=== PATIENT | male | born 1970 | race Caucasian/White ===

== ENCOUNTER 2021-10-03 02:17 | Outpatient (CLI) | payer OTHER, SELFPAY ==
[2021-10-03 15:06] LABS: Source Nasal/Nares
[2021-10-04 01:23] LABS: COVID-19 PCR Negative (Negative)
== END 2021-10-03 02:18 | disposition home or self-care (01) ==
PROVIDERS: PCP Family Medicine; Visit Provider Podiatrist
DX: Z20.822 Contact with and (suspected) exposure to COVID-19 (principal); Z01.818 Encounter for other preprocedural examination
CPT/HCPCS: 87635

== ENCOUNTER 2021-10-05 08:11 | Day surgery (SDC) | payer OTHER, SELFPAY ==
--- NOTE | 2021-10-04 18:11 | HPE_ITS ---
Date of service: 10/05/21 History of Present Illness History of Present Illness Chief Complaint: right bunion and 2nd digit hammertoe deformity Narrative: 51 YO male with progressive pain associated with a bunion and hammertoe deformity of the right foot. Pain is interfering with shoe gear use and daily activity. PFSH All Active Problems Elevated blood pressure reading (Acute) GERD (gastroesophageal reflux disease) (Chronic) Foot deformity (Acute) Very large bilateral bunions with associated hammertoes adjacent, seen by podiatry Surgical History HEART SURGERY AGE 3; ? ASD ?VSD-pt. states he is unsure ofwhich defect it was Family History Mother Essential hypertension Father Myocardial infarction Brother Heart disease Myocardial infarction Maternal Cousin Factor 5 Leiden mutation, heterozygous Maternal Aunt Factor 5 Leiden mutation, heterozygous Grandmother Diabetes Heart disease Family history Heart disease STRONG HX OF HEART DISEASE Social History Smoking/Tobacco Use Status: Former Tobacco Use tobacco type: cigarettes Quit Date: 05/19/98 Tobacco: How many years used: 10 Second Hand Exposure: Yes Smoking risk assessment performed?: Yes Alcohol Intake: current Alcohol Intake frequency: a few times a week Alcohol type: beer Drug use: Never Substance use type: does not use Household members: spouse Housing: house Communication Needs: None Do you need help understanding health information?: Rarely Pets and animals: No Sexually active: Yes Do you think of yourself as: straight/heterosexual Current gender identity: male What is your relationship status?: How often do you talk on the phone with friends or family?: three or more times per week How often do you get together with friends or relatives?: twice per week How often do you attend denominational or yarsanism services?: decline to answer Do you belong to any clubs or organized social groups?: yes Panel score (0-1 are the most socially isolated patients): 3 Special yvette needs: No Seatbelt use: always Drive 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 History of cardiac repair at age 3 noted Lung reynoso are clear abdomen is soft, BS x 4, non tender Peripheral pulses are 2/4, no edema, CFT < 3 sec all toes Muscle groups are 5/5 Skeletal exam is remarkable for a moderate to severe HAV deformity and dorsally subluxed 2nd hammertoe deformity. Neurologically, grosssly intact Plan: surgical repair of the bunion and 2nd hammertoe deformity, right foot. Potential risks and alternative treatments were discussed. All questions were answered in detail. Informed consent was obtained.
--- NOTE | 2021-10-05 | BUN_PTH ---
PATIENT: Robert Gardner LOC: [facility] U#:[id number] AGE/SX: 51/M ROOM: RE10/05/[address]: Adelso Van : 1970 BED: DIS: 10/05/2021 SPEC #: [id number] RECD: 10/05/21 14:10 STATUS: ZEV RE #: [id number] KENNY: 10/05/21 00:[address]: Adelso Van DEPT: Surgical Specimen RECD BY: Nella Muse ENTERED: 10/05/21 14:13 SP TYPE: Bunion OTHR DR: Kin Olvera Tissues: 1 - BUNION Procedures: GROSS AND MICRO LEVEL 3 Comments: [id number] (SUBMITTED IN 100% ETHANOL)
[2021-10-05 08:29] VITALS: BP 171/101; PULSE 67; RESP 16; TEMP 36.3; O2SAT 100
[2021-10-05] MEDS: Lactated Ringers 1,000 ML 80 ML IV (08:50)
--- NOTE | 2021-10-05 08:56 | W.ANESPRE ---
General Info Date of Service Date Performed: 10/05/21 Height: 5 ft 10 in Weight: 100.1 kg Body Mass Index (BMI): 31.6 Surgical Procedure: Operation Date: 10/05/21 10:55 Proposed Procedure Side Surgeon p Opening Base Wedge Osteotomy,Arthrodesis 2nd Toe Right Adelso S Carlota, DPM s Arthrodesis Right Adelso S JAVON VanM Meds Allergies and Home Medications Allergies Allergy/AdvReac Type Severity Reaction Status Date / Time No Known Allergies Allergy Verified 10/05/21 08:27 Home Medication Medication Instructions Recorded omeprazole 20 mg capsule,delayed 20 mg PO DAILY #90 caps 06/20/21 release ibuprofen 200 mg tablet 600 mg PO Q6H PRN 10/05/21 Current Visit Medications: Current Medications Generic Name Dose Route Start Last Admin Trade Name Freq PRN Reason Stop Dose Admin Sodium Chloride 500 mls @ 0 mls/hr 10/05/21 06:00 Saline 500ml Bag IV PRN PRN As Directed Cefazolin Sodium/Dextrose 2 gm in 50 mls @ 100 mls/hr 10/05/21 06:00 Ancef Duplex IVPB 10/05/21 18:00 PREOP ADEEL Ringer's Solution 1,000 mls @ 80 mls/hr 10/05/21 06:00 10/05/21 08:50 IV 11/03/21 23:59 80 mls/hr INFUSION ADEEL Administration IV Miscellaneous Supplies 1 each 10/05/21 06:00 Iv Access IV DIRECTED ADEEL IV Miscellaneous Supplies 1 each 10/05/21 06:00 Iv Access IV 11/03/21 23:59 DIRECTED ADEEL Povidone Iodine 0 ml 10/05/21 06:00 Povidone-Iodine Soln. 118 Ml Btl TP DIRECTED ADEEL Sodium Chloride 0 ml 10/05/21 06:00 Normal Saline Flush 10 Ml Syr IVP PRN PRN Sodium Chloride 0 ml 10/05/21 06:00 Normal Saline Flush 10 Ml Syr IV 11/03/21 23:59 PRN PRN Sodium Chloride 0 ml 10/05/21 06:00 Normal Saline 10 Ml Vial IJ 11/03/21 23:59 DIRECTED PRN Sterile Water 0 ml 10/05/21 06:00 Water,Injection,Sterile 10 Ml Vial IJ 11/03/21 23:59 DIRECTED PRN PFSH Active Problems Active Problems: Problem Status Onset Code Elevated blood pressure reading R03.0 GERD (gastroesophageal reflux disease) K21.9 Foot deformity M21.969 Surgical History Surgical History HEART SURGERY AGE 3; ? ASD ?VSD-pt. states he is unsure ofwhich defect it was Tobacco Smoking/Tobacco Use Status: Former Tobacco Use Second hand exposure: Yes Alcohol Alcohol Intake: current Alcohol intake frequency: a few times a week Alcohol type: beer Substance Use Substance use: Never Substance use type: does not use Vital Signs and Lab Results Vital Signs Most Recent Vital Signs in EMR: Most Recent Vital Signs Temp Pulse Resp BP Pulse Ox 36.3 C L 67 16 171/101 H 100 10/05/21 08:29 10/05/21 08:29 10/05/21 08:29 10/05/21 08:29 10/05/21 08:29 Lab Results Blood Type / Crossmatch: No Data to Display Complete Blood Count: No Data to Display Complete Metabolic Panel: No Data to Display Liver Function Panel: No Data to Display Coagulation Panel: No Data to Display Cardiac Panel: No Data to Display Arterial Blood Gas: No Data to Display Venous Blood Gas: No Data to Display Pancreas Panel: No Data to Display Thyroid Panel: No Data to Display Infectious Disease: Coronavirus (COVID-19)(PCR) Negative (Negative) 10/03/21 06:55 Coronavirus 2019 Source Nasal/Nares 10/03/21 06:55 Blood Cultures: No Data to Display Toxicology Panel: No Data to Display Anesthesia Assessment and Plan Anesthesia History Personal History: No History of Anesthesia Complications Family History: No Family History of Anesthesia Complications Exercise Tolerance Exercise Tolerance: Metabolic Equivalents>4 Pertinent Negatives Pertinent Negatives: No Symptoms of GERD (Well controlled with medication ), No Major Cardiovascular Symptoms or Complaints (Open herart surgery at 3yo, ASD/VSD) and No Major Pulmonary Symptoms or Complaints Cardiac & Pulmonary Exam Cardiac Exam: Normal S1/S2 Heart Sounds Pulmonary Exam: Clear Bilateral Breath Sounds Implantable Cardiac Device Does patient have a Pacemaker or an ICD?: No Airway Exam Known Difficult Airway: No Mallampati Class: 1 Mouth Opening: Normal (> 3cm) Thyromental Distance: Greater than 3 cm Facial Hair: Full Monique Neck Range of Motion: Full ROM Neck Circumference: Thick Teeth Condition: Normal Dentition ASA Classification ASA Score: ASA 2 Emergency Case?: No NPO Status NPO Status: NPO Clears >2 hours, Solids >8 hours Anesthesia Plan Resuscitation Status: Full Code Anesthesia Technique: General Anesthesia Airway Planned: Natural Airway Monitors Used: Standard Monitors
[2021-10-05 09:03] VITALS: BMI 31.6
[2021-10-05] MEDS: Povidone-Iodine Soln. 118 ML BTL TP (09:29)
[2021-10-05] MEDS: ceFAZolin 2 GM/50 ML BAG IVPB (10:46)
--- NOTE | 2021-10-05 13:15 | DI.RAD_ITS ---
Exam(s) XR FOOT RT LIMITED EXAM: XR FOOT RT LIMITED CLINICAL HISTORY: RIGHT BUNION TECHNIQUE: 2D and realtime digital imaging was performed. CONTRAST MATERIAL: Refer to procedure report. COMPARISON: No exams were available for comparison FINDINGS: Fluoroscopy was provided for Dr. Van during the performance of a bunionectomy. Please refer to e procedure report for complete details. Ka,r= mGy IMPRESSION: RADIATION DOSE DELIVERED: Ka,r=0.05 mGy
[2021-10-05] MEDS: Lidocaine 1% Pres-Free 30 ML VIAL (13:20)
[2021-10-05] MEDS: Bupivacaine 0.5% Pres-Free 30 ML VIAL (13:20)
[2021-10-05] MEDS: Dexamethasone 4 MG/ML VIAL (13:21)
--- NOTE | 2021-10-05 14:05 | W.PM.DS.N ---
Date of service: 10/05/21 Time of Service: 13:06 DS: Diagnosis Discharge Diagnosis (1) Hallux valgus (acquired), right foot: Status: Acute (2) Hammertoe of right foot: Status: Acute Discharge Plan Disposition Patient Disposition: HOME Condition: Good Discharge Details Attending Provider: Adelso Van Primary Care Provider: Kin Olvera Home Meds and New Rx's Prescriptions: No Action omeprazole 20 mg capsule,delayed release(DR/EC) 20 mg PO DAILY Qty: 90 3RF ibuprofen 200 mg Tablet 600 mg PO Q6H PRN Discharge Instructions Equipment/Supplies: Non-Weight Bearing Crutches Activity:: Elevate Remove Dressings/Wound Care:: Do Not Remove Shower/Bathe:: Cover Diet:: Normal Diet Discharge Orders Discharge Orders: Discharge Order (Routine); Ordered 10/05/21 Ordered By: Adelso Van DS: Summary Time Spent with Patient providing and/or coordinating discharge services: Less than 30 minutes Status at Discharge Functional status at discharge: independent ambulation Overall status at discharge: patient is back to baseline Mental Status: mental status grossly normal Speech and Movement: speech and movement normal Mood: congruent mood Affect: normal affect Exam Psych Mental Status: mental status grossly normal Speech and Movement: speech and movement normal Mood: congruent mood Affect: normal affect DS: Data Vitals/I&O Vitals and I&O: Vital Signs Temperature 36.3 C L 10/05/21 08:29 Pulse 67 10/05/21 08:29 Pulse Rhythm Regular 10/05/21 08:29 Respiratory Rate 16 10/05/21 08:29 Respiratory Depth Normal 10/05/21 08:29 Blood Pressure 171/101 H 10/05/21 08:29 Pulse Oximetry 100 10/05/21 08:29 Oxygen Delivery Method Room Air 10/05/21 08:29 Oxygen Flow Rate 0 10/05/21 08:29 Pain Level 0 10/05/21 08:29 Intake & Output 10/04/21 10/05/21 10/05/21 18:59 06:59 18:59 Intake Total 750 / 750 Balance 750 / 750 Weight 100.1 kg Intake: IV 750 / 750 PFSH All Active Problems Hammertoe of right foot (Acute) Hallux valgus (acquired), right foot (Acute) Elevated blood pressure reading (Acute) GERD (gastroesophageal reflux disease) (Chronic) Foot deformity (Acute) Very large bilateral bunions with associated hammertoes adjacent, seen by podiatry Surgical History HEART SURGERY AGE 3; ? ASD ?VSD-pt. states he is unsure ofwhich defect it was Family History Mother Essential hypertension Father Myocardial infarction Brother Heart disease Myocardial infarction Maternal Cousin Factor 5 Leiden mutation, heterozygous Maternal Aunt Factor 5 Leiden mutation, heterozygous Grandmother Diabetes Heart disease Family history Heart disease STRONG HX OF HEART DISEASE Social History Smoking/Tobacco Use Status: Former Tobacco Use tobacco type: cigarettes Quit Date: 05/19/98 Tobacco: How many years used: 10 Second Hand Exposure: Yes Smoking risk assessment performed?: Yes Alcohol Intake: current Alcohol Intake frequency: a few times a week Alcohol type: beer Drug use: Never Substance use type: does not use Household members: spouse Housing: house Communication Needs: None Do you need help understanding health information?: Rarely Pets and animals: No Sexually active: Yes Do you think of yourself as: straight/heterosexual Current gender identity: male What is your relationship status?: How often do you talk on the phone with friends or family?: three or more times per week How often do you get together with friends or relatives?: twice per week How often do you attend buddhism or pentecostal services?: decline to answer Do you belong to any clubs or organized social groups?: yes Panel score (0-1 are the most socially isolated patients): 3 Special yvette needs: No Seatbelt use: always Drive 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
[2021-10-05 14:06] VITALS: BP 122/88; PULSE 52; RESP 16; TEMP 36; O2SAT 98
--- NOTE | 2021-10-05 14:09 | ROE_ITS ---
Date of service: 10/05/21 Time of Service: 13:09 Operative Note Operative Note DATE OF PROCEDURE: 10/05/21 PRE-OP DIAGNOSIS: Hallux valgus right foot, right second hammertoe PROCEDURE: Double osteotomy bunionectomy right foot consisting of opening wedge base osteotomy and Cole type distal osteotomy Arthrodesis right second toe at the MPJ and release at the metatarsal phalangeal joint with external K wire fixation SURGEON: Adelso Van Refer to Anesthesia Record ESTIMATED BLOOD LOSS: 15 PATHOLOGY: other TOURNIQUET TIME: 142 COMPLICATIONS: None Patient was transported to: same day Patient's condition: stable Implants: Tangible Cryptography opening base wedges with locking screws 2.8 mm x 4, jaeyos 2.7 millimeter screw in the neck of the first metatarsal, 0.062 K wire through the second toe Indications: 51-year-old male with chronic discomfort associated with a right bunion second hammertoe deformity interfering with shoe gear, comfortable ambulation and daily activities. Nonoperative treatments have failed to provide sufficient relief of symptoms. He is being brought to the OR for surgical repair of said pathology. He understands risk and complications of surgery pertaining to pain, scarring, infection, malunion, delayed union, nonunion, nerve injury, overcorrection, under correction, recurrence of deformities requiring revisional procedures. No promises have been made to the final outcome of surgery. Informed consent has been obtained. Procedure Description: Robert was brought to the operative suite placed in the supine position with the right foot prepped and draped in the usual sterile podiatric fashion. Timeout was performed for safe surgery standard fashion. Attention was directed to the right foot which was exsanguinated well-padded ankle tourniquet inflated 250 mmHg. Attention was directed to the great toe first ray where a 6 cm incision was made starting at the base of the first metatarsal and extending to the base of the proximal phalanx the incision was deepened in controlled depth fashion hemostasis being acquired with electrocautery dissection was carried down over the first MPJ and an inverted L capsulotomy performed a lateral dissection was performed consisting of a lateral capsulotomy and adductor tendon release and a fibular sesamoidectomy medially the medial portion of the first metatarsal head was resected at this time attention was directed towards the base of the first metatarsal with dissection was carried down to bone a opening osteotomy was performed and a number for jaeyos opening base plate applied medially 2.7 locking screws were then utilized to stabilize the plate totaling for each being 20 mm in length C-arm was used to verify that the lateral cortex was intact plate and screw placement was good attention was now directed at the neck of the first metatarsal where an offset V osteotomy was performed the head was translocated laterally and impacted the medial shelf was resected a single screw was used to stabilize the first metatarsal head 2.716 mm screw right metacarpal wet sponge was then applied over this region and attention was directed to the second toe a lazy S incision was then made starting at the neck of the second metatarsal and extending up to the middle phalanx of the second digit the incision was deepened in controlled fashion a transverse tenotomy capsulotomy was performed at the PIPJ level the cartilage was removed from the PIPJ the head of the proximal phalanx was then fashioned into a peg the base of the middle phalanx was then opened and placed onto the peg the second MPJ was then dissected with a transverse capsulotomy dorsally over the joint McGlamery metatarsal elevators were then inserted into the joint and the medial lateral collaterals were released and the plantar tissues also released reduction of the subluxation was accomplished the second toe was then fixated in retrograde fashion with a 0.062 K wire at this time out tourniquet was up to 118 minutes and the foot was dressed with normal saline soaked sponge light compression and the tourniquet dropped for 10-minute at the conclusion of 10 minutes the foot was reexsanguinated ankle tourniquet increased to 250 mmHg copious irrigation was then performed the opening osteotomy was then packed with several bone chips from various pieces of Robert placed also in was osteoblast bone putty the periosteum was then closed with simple interrupted suture starting at the base of the first metatarsal going all the way to the end of the incision distally 3- 0 Vicryl simple interrupted suture the subcutaneous layer was then closed in the subcuticular layer was then closed before closure a hallux digitorum brevis tenotomy was performed and a Z-lengthening procedure performed to the longus this was sutured side to side in a lengthened position the skin was then coapted with continuous running suture of 4-0 nylon the joint capsule was repaired at the PIPJ of the second toe and to and with 3-0 Vicryl as was the joint capsule at the MPJ level the subcutaneous layer was brought together with 3-0 Vicryl subcutaneous layer brought together with 4-0 Vicryl and the skin was coapted with continuous running suture of 4-0 nylon 4 mg of dexamethasone phosphate was infused deeply and to the wounds Xeroform gauze fluff compression dressings applied and a well-padded posterior splint applied when the tourniquet was released vascularity returned to all toes immediately please note that the joint capsule around the first MPJ was infiltrated with a white crystalline material and a section of this was sent to pathology for evaluation likely uric acid furthermore when the joint capsule was opened synovitis was appreciated and this was all stripped down manually Robert left the OR with vital signs stable vascular status intact he will remain nonweightbearing to the right lower extremity and will be followed up by myself in the office next week Dictation was not reviewed for accuracy utilizing Brooks naturally speaking
--- NOTE | 2021-10-05 14:11 | W.ANESPOSTOP ---
Postoperative Evaluation Date, Time and Location Date Performed: 10/05/21 Time Performed: 14:12 Patient Location: Day Surgery Unit Vital Signs Most Recent Imported Vital Signs: Most Recent Vital Signs Temp Pulse Resp BP Pulse Ox 36.3 C L 67 16 171/101 H 100 10/05/21 08:29 10/05/21 08:29 10/05/21 08:29 10/05/21 08:29 10/05/21 08:29 Most Recent Manually Entered Vital Signs: Adult Blood Pressure: 122/88 Heart Rate: 50 Respirations: 12 Oxygen Saturation (%): 98 Temperature (C): 36.3 C Pain Score (0-10 Scale): 0 Pain Score Most Recent Pain Score: Most Recent Pain Score Pain Level 0 10/05/21 08:29 Assessment Mental Status: Awake (Alert & Oriented to Patient Baseline) Airway and Respiratory Function: Patent airway with normal (patient baseline) respiratory exam Cardiovascular Function: Hemodynamically Stable Hydration Status: Adequately Hydrated Nausea & Vomiting: No Nausea or Vomiting Pain: Pt. Denies Any Pain Peripheral Nerve Block: Patient did not receive a nerve block
[2021-10-05 14:13] VITALS: BP 122/88; PULSE 50; RESP 12; TEMPC 36.3; O2SAT 98
[2021-10-05 14:40] VITALS: BP 152/85; PULSE 55; RESP 16; TEMP 36.4; O2SAT 97
== END 2021-10-05 15:50 | disposition home or self-care (01) ==
PROVIDERS: PCP Family Medicine; Visit Provider Podiatrist
PROC: (CPT 28292; principal; 2021-10-05 10:45)
PROC: (CPT 28299; 2021-10-05 10:45)
DX: M20.11 Hallux valgus (acquired), right foot (principal); M20.41 Other hammer toe(s) (acquired), right foot; K21.9 Gastro-esophageal reflux disease without esophagitis; Z87.891 Personal history of nicotine dependence
CPT/HCPCS: 28299; 28285; 88300; 73620; 88304; J0131; J0690; J1100; J1885; J2250; J2405

== ENCOUNTER → 2022-02-14 16:27 | Outpatient (CLI) | payer OTHER, SELFPAY ==
--- NOTE | 2022-02-14 16:15 | DI.RAD_ITS ---
Exam(s) XR FOOT RT COMPLETE EXAM: XR FOOT RT COMPLETE CLINICAL HISTORY: Hallux Valgus-M20.10, S/P R foot surgery, L foot pain TECHNIQUE: COMPARISON: CR,XR XR FOOT LT COMPLETE from 02/14/2022 FINDINGS: Three views were obtained. There is prior 1st metatarsal osteotomy with plate and screw fixation. T here is mild hallux valgus deformity. There is fusion of the 2nd PIP joint. There are mild long arlet cular degenerative changes and moderate DJD is present at the medial cuneiform 1st metatarsal and for 1st MTP joints. IMPRESSION: RADIATION DOSE DELIVERED: Total DLP
--- NOTE | 2022-02-14 16:15 | DI.RAD_ITS ---
Exam(s) XR FOOT LT COMPLETE EXAM: XR FOOT LT COMPLETE CLINICAL HISTORY: Hallux Valgus-M20.10, S/P R foot surgery, L foot pain TECHNIQUE: COMPARISON: No exams were available for comparison FINDINGS: Three views were obtained. There is a severe hallux valgus deformity with moderate secondary degener ative changes. There are apparent hammertoe deformities of the 2nd and 3rd toes. There appears to b e cysts subluxation of the proximal phalanx of the 2nd toe from the head of the 1st metatarsal. There are mild long articular degenerative changes noted. IMPRESSION: RADIATION DOSE DELIVERED: Total DLP
--- NOTE | 2022-02-14 19:37 | DI.VRAD_ITS ---
PROCEDURE INFORMATION: Exam: XR Left Foot Exam date and time: 02/14/2022 4:34 PM Age: 51 years old Clinical indication: Other: Painhallux valgus-m20.10, S/P R foot surgery, L foot pain TECHNIQUE: Imaging protocol: Radiologic exam of the Left foot. Views: 3 or more views. COMPARISON: No relevant prior studies available. FINDINGS: Bones/joints: Hallux valgus deformity. Degenerative changes at the 1st MTP joint. Hammertoe deformities. Possible subluxation at the 2nd MTP joint. Soft tissues: Grossly unremarkable. IMPRESSION: Hallux valgus deformity with bunion formation. Degenerative changes at the 1st MTP joint. Possible subluxation at the 2nd MTP joint . Dictated and Authenticated by: Nii Torres MD. Ordering:HARPAL Hernandez MD
--- NOTE | 2022-02-14 19:39 | DI.VRAD_ITS ---
PROCEDURE INFORMATION: Exam: XR Right Foot Exam date and time: 02/14/2022 4:35 PM Age: 51 years old Clinical indication: Other: Hallux valgus-m20.10, S/P R foot surgery, R foot pain; Prior surgery; Surgery date: 1-6 months TECHNIQUE: Imaging protocol: Radiologic exam of the Right foot. Views: 3 or more views. COMPARISON: CR XR FOOT RT LIMITED 10/05/2021 11:52 AM FINDINGS: Bones/joints: Status post osteotomy of the 1st metatarsal bone, transfixed by screws. Status post bunionectomy. Mild soft tissue swelling over the dorsum of the right foot. Proximal interphalangeal joint of the 2nd digit is not well seen, possible osteotomy changes. Soft tissues: See Bones/joints finding. IMPRESSION: Status post 1st metatarsal osteotomy and bunionectomy. Mild soft tissue swelling over the dorsum of the right foot. Dictated and Authenticated by: Nii Torres MD. Ordering:HARPAL Hernandez MD
== END ==
PROVIDERS: Visit Provider Podiatrist Foot & Ankle Surgery
DX: M20.12 Hallux valgus (acquired), left foot (principal); Z98.890 Other specified postprocedural states; M19.071 Primary osteoarthritis, right ankle and foot; M19.072 Primary osteoarthritis, left ankle and foot
CPT/HCPCS: 73630

== ENCOUNTER 2022-04-18 15:50 | Outpatient (REF) | payer OTHER, SELFPAY ==
[2022-04-18 13:43] LABS: COMMENT (LAB VIEW ONLY) 50.96 mg/dL
[2022-04-18 13:52] LABS: Microalb ug/mg Crea 310.8 ug/mg Cr
== END 2022-04-18 15:51 | disposition home or self-care (01) ==
LOC: LBN 15:50
PROVIDERS: PCP Nurse Practitioner Family; Visit Provider Nurse Practitioner Family
DX: R03.0 Elevated blood-pressure reading, without diagnosis of hypertension (principal)
CPT/HCPCS: 82043; 82570

== ENCOUNTER 2022-06-13 02:28 | Outpatient (CLI) | payer BC, SELFPAY ==
[2022-06-13 12:40] LABS: ALT 47 U/L (16-63); AST 29 U/L (15-37); Albumin 4.4 g/dL (3.4-5.0); Alkaline Phosphatase 83 U/L (46-116); Anion Gap 9.4 mmol/L (3-11); BUN 36 mg/dL (7-18); Bilirubin, Total 0.4 mg/dL (0.2-1.0); CO2 28.6 mmol/L (21.0-32.0); CREATININE 2.1 mg/dL (0.70-1.30); Calcium 9.4 mg/dL (8.5-10.1); Chloride 103 mmol/L (98-107); Estimated GFR 37.18 (mL/min/1.73m2); Glucose 109 mg/dL (74-106); Potassium 3.7 mmol/L (3.5-5.1); Sodium 141 mmol/L (136-145); Total Protein 8.2 g/dL (6.4-8.2)
== END 2022-06-13 02:29 | disposition home or self-care (01) ==
LOC: LOS 02:28
PROVIDERS: PCP Nurse Practitioner Family; Visit Provider Nurse Practitioner Family
DX: I10 Essential (primary) hypertension (principal); E78.5 Hyperlipidemia, unspecified
CPT/HCPCS: 36415; 80053

== ENCOUNTER 2022-06-14 13:38 | Outpatient (CLI) | payer BC, SELFPAY ==
--- NOTE | 2022-06-14 13:30 | RT.EKG_ITS ---
APPROVED REPORT Exam: Resting ECG Reason for Exam: hypertension Patient Location: O HR:82 bpm ECG Measurements Heart Rate 82 AXIS PA 194 P 45 QRSd 163 QRS -23 QT 381 T 112 QTc 445 Conclusion Sinus rhythm...normal P axis, V-rate 50- 99 Right bundle branch block...QRSd>120, terminal axis(90,270) LVH with IVCD and secondary repol abnrm...multi-criteria, wQRSd, abnr ST-T
== END 2022-06-14 13:39 | disposition home or self-care (01) ==
LOC: DI.CM 13:39
PROVIDERS: PCP Nurse Practitioner Family; Visit Provider Nurse Practitioner Family
DX: I10 Essential (primary) hypertension (principal); R94.31 Abnormal electrocardiogram [ECG] [EKG]; I45.19 Other right bundle-branch block
CPT/HCPCS: 93010

== ENCOUNTER 2022-06-20 04:21 | Outpatient (CLI) | payer BC, SELFPAY ==
[2022-06-20 13:29] LABS: ALT 48 U/L (16-63); AST 25 U/L (15-37); Albumin 4.3 g/dL (3.4-5.0); Alkaline Phosphatase 84 U/L (46-116); Anion Gap 9.3 mmol/L (3-11); BUN 40 mg/dL (7-18); Bilirubin, Total 0.3 mg/dL (0.2-1.0); CO2 25.7 mmol/L (21.0-32.0); Calcium 9.3 mg/dL (8.5-10.1); Calculated LDL 176 mg/dL (<100); Chloride 106 mmol/L (98-107); Cholesterol 259 mg/dL (<200); Estimated GFR 39.42 (mL/min/1.73m2); Glucose 103 mg/dL (74-106); HDL Cholesterol 48 mg/dL (40-60); Potassium 4.9 mmol/L (3.5-5.1); Sodium 141 mmol/L (136-145); Total Protein 7.9 g/dL (6.4-8.2); Triglyceride 179 mg/dL (<150)
== END 2022-06-20 04:22 | disposition home or self-care (01) ==
LOC: LOS 04:21
PROVIDERS: PCP Nurse Practitioner Family; Visit Provider Nurse Practitioner Family
DX: E78.5 Hyperlipidemia, unspecified (principal)
CPT/HCPCS: 36415; 80053; 80061

== ENCOUNTER 2022-06-24 07:32 | Outpatient (REF) | payer BC, SELFPAY ==
[2022-06-26 16:45] LABS: Urine Volume 2600 mL
== END 2022-06-24 07:33 | disposition home or self-care (01) ==
LOC: LBN 07:32
PROVIDERS: PCP Nurse Practitioner Family; Visit Provider Nurse Practitioner Family
DX: I10 Essential (primary) hypertension (principal)
CPT/HCPCS: 81050; 82384

== ENCOUNTER 2022-06-26 02:24 | Outpatient (CLI) | payer BC, SELFPAY ==
--- NOTE | 2022-06-26 07:00 | DI.RAD_ITS ---
Exam(s) XR KNEE LT 3V AP,LAT,RADHA EXAM: XR KNEE LT 3V AP,LAT,RADHA CLINICAL HISTORY: increaseD LT KNEE PAIN, M25.562. TECHNIQUE: 2D digital imaging was performed of the left knee. Three images were obtained. AP, late ral and PA tunnel views were obtained. COMPARISON: None. FINDINGS: BONES: No acute fracture is present. No bony destructive lesion is seen. JOINTS: The knee is normally aligned. No joint effusion is seen. SOFT TISSUE: Normal. IMPRESSION: Normal radiographs of the left knee. DATA REPOSITORY: RADIATION DOSE DELIVERED:
== END 2022-06-26 02:44 ==
LOC: DI 02:24
PROVIDERS: PCP Nurse Practitioner Family; Visit Provider Nurse Practitioner Family
DX: M25.562 Pain in left knee (principal)
CPT/HCPCS: 73562

== ENCOUNTER 2022-09-23 03:04 | Outpatient (CLI) | payer BC, SELFPAY ==
[2022-09-23 12:32] LABS: Anion Gap 10.2 mmol/L (3-11); BUN 40 mg/dL (7-18); CO2 23.8 mmol/L (21.0-32.0); CREATININE 2.2 mg/dL (0.70-1.30); Chloride 107 mmol/L (98-107); Estimated GFR 34.94 (mL/min/1.73m2); Glucose 118 mg/dL (74-106); Potassium 4.9 mmol/L (3.5-5.1); Sodium 141 mmol/L (136-145)
== END 2022-09-23 03:05 | disposition home or self-care (01) ==
LOC: LOS 03:04
PROVIDERS: PCP Nurse Practitioner Family; Visit Provider Nurse Practitioner Family
DX: I10 Essential (primary) hypertension (principal)
CPT/HCPCS: 36415; 80048

== ENCOUNTER 2022-12-13 00:12 | Outpatient (CLI) | payer BC, SELFPAY ==
--- NOTE | 2022-12-13 06:30 | DI.CT_ITS ---
Exam(s) CT ABDOMEN WO/W EXAM: CT ABDOMEN WO/W CLINICAL HISTORY: f/u abnl us,hypertension,ckd,? upper pole mass or artifact TECHNIQUE: Imaging Protocol: Axial computed tomography images with coronal and sagittal reformatted images were created and reviewed CONTRAST MATERIAL: Intravenous: Omnipaque 350 contrast volume:100 mL Oral: No. COMPARISON: CT ABD PELVIS WITH CONTRAST from 11/22/2009 US US RENAL from 11/12/2022 FINDINGS: ABDOMEN: Lung Bases: There is a small hiatal hernia. Liver: Normal density. No measurable mass. Portal, Superior Mesenteric, and Splenic Veins: Unremarkable. Gallbladder and Biliary Tract: No radiodense calculus or dilation. Pancreas: Normal density, no abnormal calcifications or inflammatory process. Spleen: Normal. Adrenals: No masses seen. Kidneys: Normal size, contour and axis. No radiodense stones or obstructive uropathy. There are simpl e cysts seen in the right kidney. The largest is in the inferior pole and measures 1.5 cm. There is no evidence of a renal mass. Abdominal Aorta: Abdominal portion non-dilated. Bowel: No obstruction or bowel wall thickening. Peritoneal Cavity: No ascites, collection or mesenteric inflammatory response. No free air. Lymph Nodes: Within normal limits. Bones: Within normal limits for the patient's age. Soft Tissues: There is a fat containing small midline anterior abdominal wall hernia. IMPRESSION: 1. There is no evidence of a renal mass or left upper quadrant mass. 2. Simple cyst in the right kidney. The largest measures 1.5 cm. No follow-up is recommended. RADIATION DOSE DELIVERED: 1,507.32mGy.cm Total DLP DATA REPOSITORY: All CT scans at this facility are submitted to the National Radiology Data Registry (NRDR) Dose Index Registry (DIR) with the [employer] (ACR). RADIATION OPTIMIZATION: All CT scans at this facility use at least one of these dose optimization te chniques: automated exposure control; mA and/or kV adjustment per patient size (includes targeted exa ms where dose is matched to clinical indication); or iterative reconstruction.
[2022-12-13 08:33] LABS: CREATININE 2.2 mg/dL (0.70-1.30); Estimated GFR 34.94 (mL/min/1.73m2); Uric Acid 8.6 mg/dL (3.5-7.2)
[2022-12-13 08:35] LABS: Hemoglobin A1C 5.6 % (<5.7)
[2022-12-13] MEDS: Omnipaque 350 MG/ML 100 ML BTL IJ (08:51)
== END 2022-12-13 00:32 ==
LOC: DI 00:12
PROVIDERS: PCP Nurse Practitioner Family; Visit Provider Nurse Practitioner Family
DX: N18.30 Chronic kidney disease, stage 3 unspecified (principal); I10 Essential (primary) hypertension
CPT/HCPCS: 74170; 82565; 83036; 84550; J3490

== ENCOUNTER 2023-01-08 04:09 | Outpatient (CLI) | payer BC, SELFPAY ==
[2023-01-08 11:55] LABS: Anion Gap 8.1 mmol/L (3-11); BUN 36 mg/dL (7-18); CO2 26.9 mmol/L (21.0-32.0); CREATININE 2.2 mg/dL (0.70-1.30); Calcium 9.6 mg/dL (8.5-10.1); Chloride 105 mmol/L (98-107); Estimated GFR 34.94 (mL/min/1.73m2); Glucose 116 mg/dL (74-106); Potassium 4.6 mmol/L (3.5-5.1); Sodium 140 mmol/L (136-145); Uric Acid 7.1 mg/dL (3.5-7.2)
[2023-02-17 13:26] LABS: Anion Gap 9.9 mmol/L (3-11); BUN 33 mg/dL (7-18); CO2 23.1 mmol/L (21.0-32.0); CREATININE 2.2 mg/dL (0.70-1.30); Calcium 9.5 mg/dL (8.5-10.1); Chloride 106 mmol/L (98-107); Estimated GFR 34.94 (mL/min/1.73m2); Glucose 119 mg/dL (74-106); Magnesium 1.9 mg/dL (1.8-2.4); PHOSPHORUS 2.6 mg/dL (2.6-4.7); Potassium 4.4 mmol/L (3.5-5.1); Sodium 139 mmol/L (136-145)
== END 2023-01-08 04:10 | disposition home or self-care (01) ==
LOC: LOS 04:09
PROVIDERS: PCP Nurse Practitioner Family; Visit Provider Nurse Practitioner Family
DX: I10 Essential (primary) hypertension; N18.30 Chronic kidney disease, stage 3 unspecified; M10.9 Gout, unspecified
CPT/HCPCS: 36415; 80048; 84550

== ENCOUNTER 2023-02-17 19:49 | Outpatient (CLI) | payer BC, SELFPAY | END 2023-02-17 19:50 | disposition home or self-care (01) | LOC: LOS 19:50 | PROVIDERS: PCP Nurse Practitioner Family; Referring Provider Nurse Practitioner Family; Visit Provider Nurse Practitioner Family | DX: I25.2 Old myocardial infarction (principal) | CPT/HCPCS: 36415; 80048; 83735; 84100 ==

== ENCOUNTER 2023-02-26 19:54 | Emergency (ER) | payer BC, SELFPAY ==
[2023-02-26] VITALS (20 sets, daily range): BP systolic 132–157; BP diastolic 79–90; PULSE 59–72; RESP 11–18; TEMP 36.9; O2SAT 96–99
--- NOTE | 2023-02-26 20:00 | RT.EKG_ITS ---
APPROVED REPORT Exam: Resting ECG Reason for Exam: chest pain Patient Location: E HR:61 bpm ECG Measurements Heart Rate 61 AXIS DE 208 P 2 QRSd 158 QRS -26 QT 411 T 62 QTc 416 Conclusion Sinus rhythm...normal P axis, V-rate 60- 99 Borderline prolonged DE interval...DE >202, V-rate 50- 90 Right bundle branch block...QRSd>120, terminal axis(90,270) LVH with secondary repolarization abnormality...multi-LVH criteria, abnrm ST-T Normal sinus rhythm at a rate of 61. Left axis deviation with right bundle branch block?bifasci cular block. Anterior T wave inversions. Similar to prior. Resolved lateral T wave inversions. Mi ld ST segment elevation in 2 and 3 slightly more pronounced compared to prior in lead III. Appears s imilar to prior in [facility] EMR record from last month.
--- NOTE | 2023-02-26 20:05 | W.ED.GENAD ---
Discharge Plan Disposition Patient Disposition: Against Medical Advice Discharge Details Clinical Impression: Chest tightness Primary Care Provider: Jesús Medina ED Provider: Chaparro Hopkins Home Meds and New Rx's Prescriptions: Continued omeprazole 20 mg capsule,delayed release(DR/EC) 20 mg PO DAILY PRN lisinopril 10 mg tablet 10 mg PO DAILY Qty: 90 1RF colchicine (gout) 0.6 mg tablet 0.6 mg PO DAILY Qty: 90 1RF Rx Instructions: 0.6 mg daily for prophylaxis x 3 months. If gout flares, take 2 tabs immediately and one more tab in an hour aspirin [Adult Low Dose Aspirin] 81 mg tablet,delayed release (DR/EC) 81 mg PO DAILY atorvastatin 80 mg tablet 80 mg PO QHS clopidogrel 75 mg tablet 75 mg PO DAILY metoprolol succinate 25 mg tablet extended release 24 hr 25 mg PO DAILY Rx Instructions: take 12.5mg BID nitroglycerin 0.4 mg tablet, sublingual 0.4 mg sublingual Q5M PRN Rx Instructions: do not exceed 3 doses per episode allopurinol 100 mg tablet 100 mg PO DAILY Qty: 90 4RF Discharge Instructions Additional Instructions: You were seen in the emergency department for your chest tightness. Your blood work initially showed no sign of damage to your heart. It was recommended that you stay for a second blood draw. You left AGAINST MEDICAL ADVICE. If you have recurrent symptoms have chest pain fevers or have any other concerns please return to the emergency department. HPI General Date/Time Provider Initiated Documentation: 02/26/23 20:04. HPI Narrative: HPI This is a 52-year-old male with recent history of 2 stents at [facility] last [place] now in the emergency department in the setting of feeling shaky fluttering and not feeling well. Patient reported that he completed cardiac rehab today. He reports that this afternoon he felt a tightness across his chest. He felt as if he might of been having an anxiety attack. He was shaking. He denied chest pain. He denies any fevers or shortness of breath. He has not had any difficulty breathing dysuria nor frequency. Has not been nauseous nor vomiting. He has been adherent with his home medications. He reports that he does not feel right. Exam General: Well-appearing in no acute distress speaking in complete sentences. Head: Normocephalic, atraumatic. Eye: Extraocular eye movements intact. No conjunctival injection. No scleral icterus. Ear, nose, mouth, throat: Grossly normal inspection. Normal voice, handling secretions normally. Neck: Trachea midline. Cardiovascular: Well-perfused distal extremities. Regular rate and rhythm Respiratory: Nonlabored respiration.clear lungs bilaterally. Gastrointestinal: Nondistended abdomen. Soft nontender. No rebound. No guarding. Musculoskeletal: No edema. Moving all 4 extremities spontaneously. Skin: Normal for age and race, grossly normal temperature and turgor. No acute rash. Neurologic: Alert and appropriate, no apparent acute deficits. Psychiatric: Mood and manner are appropriate. Grooming and personal hygiene are appropriate. MDM This is an overall very well-appearing normothermic and not tachycardic 52-year-old male with recent stenting and concerns for not feeling well which could possibly represent in-stent thrombosis. His ECG is nonischemic and he appears quite well. Will obtain 2 sets of troponin based on his recent stenting. In the absence of chest pain will defer nitroglycerin at this point time. Patient reports that he has been adherent with his aspirin. Given nonischemic ECG will defer aspirin at this point time. No fevers to suggest pneumonia. No tearing quality to suggest aortic dissection. Not hypotensive nor dialysis patient so doubt tamponade. No rash to chest to suggest zoster. No trauma and clear equal breath sounds so my suspicion is low for pneumothorax. No positional component to suggest pericarditis. No vomiting to suggest increased risk for esophageal rupture. Will monitor patient in the ED. 8:55 PM CBC showing mild normocytic anemia. No leukocytosis. No thrombocytopenia. Blood pressure normalized without intervention. 9:20 PM Negative troponin. Basic metabolic panel showing CKD but no AASHISH. Mild hyperglycemia but no anion gap normal bicarbonate??not consistent with DKA. 9:36 PM I met with the patient and his and explained his reassuring initial troponin. I was waiting on the read on his chest x-ray. Patient reported that he felt reassured. He wanted to be discharged. I advised they recommended that he stay for a second troponin and a formal read on the x-ray. He declined. 1. I explained the current situation and condition to the patient. 2. I explained the recommended treatment for this condition -repeat troponin and radiology chest x-ray read 3. I explained the risk of not having the recommended treatment - myocardial injury 4. The patient understands this information has no questions, and repeated back this information. 5. The patient states that they need to leave and will return to the emergency department if his symptoms worsened 6. Mental status is lucid and the patient has decision-making capacity. 7. Patient is withdrawing his consent for care Chronic conditions affecting the care of the patient: Recent stenting History obtained from an outside historian: N/A External record review: [facility] [place] [Diagnostic interpretations performed by me:] [Per my independent interpretation chest x-ray shows:] No acute process [Per my independent interpretation EKG shows:] Normal sinus rhythm at a rate of 61. Left axis deviation with right bundle branch block??bifascicular block. Anterior T wave inversions. Similar to prior. Resolved lateral T wave inversions. Mild ST segment elevation in 2 and 3 slightly more pronounced compared to prior in lead III. Appears similar to prior in [facility] EMR record from last month. Medications: N/A Social determinants of health affecting disposition: N/A Management discussed with: N/A Treatment/interventions considered: N/A Response to therapies provided: N/A Related Data Home Medications Medication Instructions Recorded Confirmed omeprazole 20 mg capsule,delayed 20 mg PO DAILY PRN 02/14/22 02/26/23 release lisinopril 10 mg tablet 10 mg PO DAILY #90 tabs 09/27/22 02/26/23 colchicine (gout) 0.6 mg tablet 0.6 mg PO DAILY #90 tabs 12/17/22 02/26/23 allopurinol 100 mg tablet 100 mg PO DAILY #90 tabs 02/17/23 02/26/23 aspirin 81 mg tablet,delayed 81 mg PO DAILY 02/17/23 02/26/23 release (Adult Low Dose Aspirin) atorvastatin 80 mg tablet 80 mg PO QHS 02/17/23 02/26/23 clopidogrel 75 mg tablet 75 mg PO DAILY 02/17/23 02/26/23 metoprolol succinate 25 mg 25 mg PO DAILY 02/17/23 02/26/23 tablet,extended release 24 hr nitroglycerin 0.4 mg sublingual 0.4 mg sublingual Q5M PRN 02/17/23 02/26/23 tablet Previous Rx's Medication Instructions Recorded lisinopril 10 mg tablet 10 mg PO DAILY #90 tabs 09/27/22 colchicine (gout) 0.6 mg tablet 0.6 mg PO DAILY #90 tabs 12/17/22 allopurinol 100 mg tablet 100 mg PO DAILY #90 tabs 02/17/23 Allergies Allergy/AdvReac Type Severity Reaction Status Date / Time No Known Allergies Allergy Verified 02/17/23 10:43 PFSH All Active Problems (Updated 02/26/23 @ 21:34 by Chaparro Hopkins MD) Chest tightness (Acute) GERD (gastroesophageal reflux disease) (Chronic) Foot deformity (Acute) Very large bilateral bunions with associated hammertoes adjacent, seen by podiatry Hallux valgus (acquired), right foot (Acute) Hammertoe of right foot (Acute) Diastasis recti (Acute 05/01/16) Hyperlipidemia (Acute 05/01/16) Gout (Chronic) 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 ASD ?VSD-pt. states he is unsure ofwhich defect it was Family History Mother Essential hypertension Father Myocardial infarction Brother Heart disease Myocardial infarction Maternal Cousin Factor 5 Leiden mutation, heterozygous Maternal Aunt Factor 5 Leiden mutation, heterozygous Grandmother Diabetes Heart disease Family history Heart disease STRONG HX OF HEART DISEASE Social History Smoking/Tobacco Use Status: Former Tobacco Use tobacco type: cigarettes Quit Date: 05/19/98 Tobacco: How many years used: 10 Second Hand Exposure: Yes Smoking risk assessment performed?: Yes Alcohol Intake: current Alcohol Intake frequency: a few times a week Alcohol type: beer Drug use: Never Substance use type: does not use Caregiver/Support person: No Household members: spouse Housing: house Communication Needs: None Do you need help understanding health information?: Rarely Pets and animals: No Sexually active: Yes Do you think of yourself as: straight/heterosexual Current gender identity: male What is your relationship status?: How often do you talk on the phone with friends or family?: decline to answer How often do you get together with friends or relatives?: decline to answer How often do you attend confucianist or gnosticist services?: decline to answer Do you belong to any clubs or organized social groups?: decline to answer Panel score (0-1 are the most socially isolated patients): 1 Special yvette needs: No Seatbelt use: always Drive intox or ride w/intox cdl driver: No Do you feel safe at home: Yes Do you feel safe in your relationship?: Yes
--- NOTE | 2023-02-26 20:30 | DI.RAD_ITS ---
Exam(s) XR CHEST 2V PA LATERAL EXAM: XR CHEST 2V PA LATERAL CLINICAL HISTORY: Chest pain TECHNIQUE: 2D digital imaging was performed of the chest. Two images were obtained. PA and lateral views were obtained. COMPARISON: CR CHEST 2 VIEWS PA,LAT from 11/22/2009 FINDINGS: MEDIASTINUM: Normal. HEART: Normal. PULMONARY VASCULATURE: Normal. LUNGS: Clear. PLEURAL SPACE: No pleural effusion or pneumothorax. BONE:Within normal limits for the patient's age. Sternal wires are in place. OTHER FINDINGS:Normal. IMPRESSION: No acute pulmonary findings. DATA REPOSITORY: RADIATION DOSE DELIVERED:
[2023-02-26 20:41] LABS: Abs Immature Grans 0.03 10^3/uL (0.0-0.06); Absolute Basophil Count 0.05 10^3/uL (0.0-0.2); Absolute Eosinophil Count 0.11 10^3/uL (0.0-0.7); Absolute Lymphocyte Count 2.07 10^3/uL (1.2-3.4); Absolute Monocyte Count 0.68 10^3/uL (0.1-0.8); Basophils % 0.5; Eosinophils % 1.1; HCT 39.9 % (40.0-50.0); HGB 13.7 g/dL (13.5-17.5); Immature Grans % 0.3; Lymphocytes % 21.3; MCH 29.9 pg (27.0-33.0); MCHC 34.3 % (32.0-36.0); MCV 87 fL (80-95); Neutrophils % 69.8; Platelet Count 225 10^3/uL (130-400); RBC 4.58 10^6/uL (4.36-5.78); RDW 12.1 % (11.8-14.1); RDW-SD 38.6 fL; WBC 9.74 10^3/uL (4.4-10.8)
[2023-02-26 21:18] LABS: Anion Gap 8.1 mmol/L (3-11); BUN 29 mg/dL (7-18); CO2 25.9 mmol/L (21.0-32.0); Calcium 9.5 mg/dL (8.5-10.1); Chloride 104 mmol/L (98-107); Estimated GFR 39.17 (mL/min/1.73m2); Glucose 111 mg/dL (74-106); Potassium 3.8 mmol/L (3.5-5.1); Sodium 138 mmol/L (136-145); Troponin I < 50 ng/L (<or=60)
--- NOTE | 2023-02-26 21:46 | DI.VRAD_ITS ---
PROCEDURE INFORMATION: Exam: XR Chest Exam date and time: 02/26/2023 9:18 PM Age: 52 years old Clinical indication: Other: Chest pain TECHNIQUE: Imaging protocol: Radiologic exam of the chest. Views: 2 views. COMPARISON: CT ABDOMEN WO/W 12/13/2022 8:49 AM FINDINGS: Lungs: Normal. Pleural spaces: Unremarkable. No pleural effusion. No pneumothorax. Heart/Mediastinum: Normal. Bones/joints: Changes of prior sternotomy. Multilevel thoracic spine degenerative disc space narrowing and osteophyte formation. IMPRESSION: No acute cardiopulmonary abnormality. Dictated and Authenticated by: Law Stahl MD. Ordering:SHARITA Mayfield MD
== END 2023-02-26 21:45 | disposition left against medical advice (07) ==
PROVIDERS: Emergency Provider Emergency Medicine; PCP Nurse Practitioner Family
DX: R07.89 Other chest pain (principal)
CPT/HCPCS: 80048; 93005; 99283; 71046; 84484; 85025; 93010

== ENCOUNTER 2023-03-17 08:27 | Outpatient (CLI) | payer BC, SELFPAY ==
--- NOTE | 2023-03-17 08:15 | RT.EKG_ITS ---
APPROVED REPORT Exam: Resting ECG Reason for Exam: chest tightness Patient Location: O HR:63 bpm ECG Measurements Heart Rate 63 AXIS MD 192 P 5 QRSd 150 QRS -26 QT 397 T 62 QTc 407 Conclusion Sinus rhythm...normal P axis, V-rate 50- 99 Right bundle branch block...QRSd>120, terminal axis(90,270) Left ventricular hypertrophy...multiple voltage criteria
== END 2023-03-17 08:28 | disposition home or self-care (01) ==
LOC: DI.CARD 08:28
PROVIDERS: PCP Nurse Practitioner Family; Visit Provider Internal Medicine Cardiovascular Disease
DX: I25.2 Old myocardial infarction (principal); R07.89 Other chest pain
CPT/HCPCS: 93010

== ENCOUNTER 2023-03-17 10:27 | Outpatient (RCR) | payer BC, SELFPAY | END 2023-03-18 23:59 | disposition home or self-care (01) | LOC: CR 10:27 | PROVIDERS: PCP Nurse Practitioner Family; Visit Provider Internal Medicine Cardiovascular Disease | DX: I25.2 Old myocardial infarction (principal); Z51.89 Encounter for other specified aftercare | CPT/HCPCS: S9472 ==

== ENCOUNTER 2023-04-16 09:27 | Outpatient (RCR) | payer BC, SELFPAY | END 2023-04-17 23:59 | disposition home or self-care (01) | LOC: CR 09:27 | PROVIDERS: PCP Nurse Practitioner Family; Visit Provider Internal Medicine Cardiovascular Disease | DX: I25.2 Old myocardial infarction (principal); Z51.89 Encounter for other specified aftercare | CPT/HCPCS: S9472 ==

== ENCOUNTER 2023-05-16 10:00 | Outpatient (RCR) | payer BC, SELFPAY | END 2023-05-18 23:59 | disposition home or self-care (01) | LOC: CR 10:00 | PROVIDERS: PCP Nurse Practitioner Family; Visit Provider Internal Medicine Cardiovascular Disease | DX: I25.2 Old myocardial infarction (principal); Z51.89 Encounter for other specified aftercare | CPT/HCPCS: S9472 ==

== ENCOUNTER 2023-06-18 10:12 | Outpatient (RCR) | payer BC, SELFPAY | END 2023-06-18 23:59 | disposition home or self-care (01) | LOC: CR 10:12 | PROVIDERS: PCP Nurse Practitioner Family; Visit Provider Internal Medicine Cardiovascular Disease | DX: I25.2 Old myocardial infarction (principal); Z51.89 Encounter for other specified aftercare | CPT/HCPCS: S9472 ==

== ENCOUNTER 2023-06-20 10:13 | Outpatient (RCR) | payer BC, SELFPAY | END 2023-07-17 23:59 | disposition home or self-care (01) | LOC: CR 10:13 | PROVIDERS: PCP Nurse Practitioner Family; Visit Provider Internal Medicine Cardiovascular Disease | DX: I21.4 Non-ST elevation (NSTEMI) myocardial infarction (principal); Z51.89 Encounter for other specified aftercare | CPT/HCPCS: S9472 ==

== ENCOUNTER 2023-07-03 04:43 | Outpatient (CLI) | payer BC, SELFPAY ==
[2023-07-03 12:39] LABS: ALT 100 U/L (16-63); AST 51 U/L (15-37); Albumin 4.6 g/dL (3.4-5.0); Alkaline Phosphatase 91 U/L (46-116); Anion Gap 10.2 mmol/L (3-11); BUN 39 mg/dL (7-18); Bilirubin, Total 0.5 mg/dL (0.2-1.0); CO2 25.8 mmol/L (21.0-32.0); CREATININE 2.1 mg/dL (0.70-1.30); Calcium 9.7 mg/dL (8.5-10.1); Chloride 106 mmol/L (98-107); Estimated GFR 36.95 (mL/min/1.73m2); Glucose 105 mg/dL (74-106); Potassium 4.6 mmol/L (3.5-5.1); Sodium 142 mmol/L (136-145); Total Protein 8.3 g/dL (6.4-8.2); Uric Acid 6.5 mg/dL (3.5-7.2)
[2023-07-03 12:57] LABS: Calculated LDL 67 mg/dL (<100); Cholesterol 148 mg/dL (<200); HDL Cholesterol 60 mg/dL (40-60); Triglyceride 107 mg/dL (<150)
[2023-07-03 19:52] LABS: HIV-1/2 Ag & Ab Screen Negative (Negative)
[2023-07-03 19:54] LABS: Hepatitis C Ab w Rflx HCV PCR Negative (Negative)
== END 2023-07-03 04:44 | disposition home or self-care (01) ==
LOC: LOS 04:43
PROVIDERS: PCP Nurse Practitioner Family; Visit Provider Nurse Practitioner Family
DX: I25.10 Atherosclerotic heart disease of native coronary artery without angina pectoris (principal); N18.31 Chronic kidney disease, stage 3a; Z11.4 Encounter for screening for human immunodeficiency virus [HIV]; Z11.59 Encounter for screening for other viral diseases
CPT/HCPCS: 36415; 80053; 80061; 86803; 87389; 84550

== ENCOUNTER 2023-09-12 14:35 | Outpatient (REF) | payer BC, SELFPAY ==
[2023-09-12 13:56] LABS: ALT 160 U/L (16-63); AST 81 U/L (15-37); Albumin 4.3 g/dL (3.4-5.0); Alkaline Phosphatase 92 U/L (46-116); Anion Gap 11.9 mmol/L (3-11); BUN 36 mg/dL (7-18); Bilirubin, Total 0.4 mg/dL (0.2-1.0); CO2 23.1 mmol/L (21.0-32.0); CREATININE 2.1 mg/dL (0.70-1.30); Calcium 9.1 mg/dL (8.5-10.1); Chloride 109 mmol/L (98-107); Estimated GFR 36.72 (mL/min/1.73m2); Glucose 89 mg/dL (74-106); Potassium 4.7 mmol/L (3.5-5.1); Sodium 144 mmol/L (136-145); Total Protein 7.2 g/dL (6.4-8.2)
[2023-09-12 15:28] LABS: Lab Add On Test DONE
[2023-09-12 16:09] LABS: Bilirubin, Direct 0.1 mg/dL (0.0-0.2); Creatine Kinase 164 U/L (39-308)
[2023-09-15 11:21] LABS: Lyme Ab w Rflx to Lyme Confirm Negative (Negative)
[2023-09-15 16:06] LABS: Anaplasma phagocytophilum Negative (Negative); B. miyamotoi PCR Negative (Negative); Babesia divergens/MO-1 Negative (Negative); Babesia duncani Negative (Negative); Babesia microti Negative (Negative); Ehrlichia chaffeensis Negative (Negative); Ehrlichia ewingii/canis Negative (Negative); Ehrlichia muris eauclairensis Negative (Negative)
== END 2023-09-12 14:36 | disposition home or self-care (01) ==
LOC: LBN 14:35
PROVIDERS: PCP Nurse Practitioner Family; Visit Provider Nurse Practitioner Family
DX: N18.30 Chronic kidney disease, stage 3 unspecified (principal); R74.8 Abnormal levels of other serum enzymes; M79.18 Myalgia, other site
CPT/HCPCS: 80053; 82550; 87798; 82248; 86618

== ENCOUNTER → 2023-12-25 00:48 | Outpatient (CLI) | payer BC, SELFPAY ==
--- NOTE | 2023-12-25 09:35 | DI.NM_ITS ---
APPROVED REPORT Exam: Pharmacologic Patient Location: Out-Patient Room/Bed: Stress Nurse: Isha Sorenson RN Ordering Provider:TIFFANIE LAZO, Contact Number: BMI: 29.14 Baseline Rhythm: Sinus Rhythm, RBBB, 1st degree AV block Indications: CAD, H/O NM Medical History Medical History: Anxiety, HLD, HTN, CAD, GERD, Gout, CKD, HX. NM w/ cath 02/09/23 Cardiac Medications: Allopurinol, aspirin, atorvastatin, buspirone, calcitriol, plavix, colchicine, l isinopril, metoprolol succinate, nitro, omeprazole. Allergies: NKA Cardiac Risk Factors: Family HX, HTN, HLD, CVD, former smoker Previous Cardiac Procedures: cardiac cath 02/09/23 Pretest Chest Pain Characteristics: None Exercise History: Indeterminate Physical Disabilities: None Lung Sounds: Clear to auscultation Heart Sounds: Regular Stress Test Details Test: Pharmacologic stress was paired with low level exercise. Reason for pharmacologic stress test: Non diagnostic ST changees. Nuclear Acquisition: Rest Tc-99m/Stress Tc-99m 1 day Rest Isotope: Tc-99m Sestamibi. Dose: 10.0 Date: 12/25/2023 Injection Time: 0830 Stress Isotope: Tc-99m Sestamibi. Dose: 30.0 Date: 12/25/2023 Injection Time: 1018 HR Resting HR Supine: 62 bpm Max Heart Rate (APMHR): 166.561983 bpm Resting HR Standin bpm Target HR (85% APMHR): 141.796889 bpm Max HR Achieved: 150 bpm % of APMHR: 90.36 Recovery HR: 98 bpm HR response to stress: Normal HR response to stress BP Resting BP Supine: 138/72 mmHg Resting BP Standin/84 mmHg Max BP: 156/72 mmHg Recovery BP: 152/82 mmHg BP response to stress: Normal blood pressure response to stress. ECG Resting ECG: Sinus Rhythm, RBBB, nonspecific ST-T abnormalities Ectopy: None Stress ECG: Sinus tachycardia, RBBB, nonspecific ST-T abnormalities ST Change: Nondiagnostic ST abnormalities Arrhythmia: None Recovery ECG: Sinus Rhythm, RBBB, nonspecific ST-T abnormalities Recovery ST Change: Nondiagnostic ST abnormalities Recovery Arrhythmia: Rare PAC's Clinical Stress Symptoms: Fatigue Exercise duration: 04 min02 sec Exercise capacity: 2.99 METs Angina Score: Non-Limiting Rate Pressure Product: [id number] Stress ECG Conclusion 1. Resting electrocardiogram showed a right bundle branch block 2. Patient underwent testing using a combination of pharmacologic stress with regadenoson and low-lev el exercise 3. Peak heart rate achieved was 90% of predicted for age 4. There was no electrocardiographic evidence of myocardial ischemia 5. See MPI report Stress Test Summary STAGE HR BP SpO2 Symptoms NOTES Supine 62 138/72 Standing 83 148/84 1 min post Lexiscan injection 145 150/82 3 min post Lexiscan injection 143 156/72 6 min post Lexiscan injection 117 152/82 Patient noted to have resting ST -T abnormalities and significant ST changes from baseline were note d with exercise which were not returning to baseline during recovery. Patient c/o 4/10 chest tighnes s during recovery. Dr. Lazo in to evalute patient an ST changes noted to be returning to baseline at this time. Ok for patient to proceed to imaging per Dr. Lazo. All symptoms resolved when patient proc eeded to imaging ambulatory in no apparent distress. MPI Conclusion There is a small area of decreased perfusion at the apex. There is partial redistribution Ejection fraction is 57%. Wall motion is normal Radiologist Interpretation Radiologist agrees with Heavy Media Operator's Interpretation. Radiologist Interpretation by: Adis Ramon MD Interpretation Date/Time: 12/26/2023 16:54:50
[2023-12-25] MEDS: Regadenoson 0.4 MG/5 ML SYR IVP (12:02)
== END ==
PROVIDERS: PCP Nurse Practitioner Family; Visit Provider Internal Medicine Cardiovascular Disease
DX: I25.10 Atherosclerotic heart disease of native coronary artery without angina pectoris (principal); I25.2 Old myocardial infarction
CPT/HCPCS: 78452; 93017; J2785

== ENCOUNTER 2024-01-01 04:32 | Outpatient (CLI) | payer BC, SELFPAY ==
[2024-01-01 13:02] LABS: ALT 65 U/L (16-63); AST 29 U/L (15-37); Albumin 4.2 g/dL (3.4-5.0); Alkaline Phosphatase 73 U/L (46-116); Anion Gap 13.1 mmol/L (3-11); BUN 39 mg/dL (7-18); Bilirubin, Total 0.51 mg/dL (0.2-1.0); CO2 23.9 mmol/L (21.0-32.0); CREATININE 2.2 mg/dL (0.70-1.30); Calcium 9.8 mg/dL (8.5-10.1); Chloride 106 mmol/L (98-107); Estimated GFR 34.72 (mL/min/1.73m2); Glucose 96 mg/dL (74-106); Potassium 4.4 mmol/L (3.5-5.1); Sodium 143 mmol/L (136-145); Total Protein 7.5 g/dL (6.4-8.2)
== END 2024-01-01 04:33 | disposition home or self-care (01) ==
PROVIDERS: PCP Nurse Practitioner Family; Visit Provider Nurse Practitioner Family
DX: R74.8 Abnormal levels of other serum enzymes (principal); I25.2 Old myocardial infarction; Z01.30 Encounter for examination of blood pressure without abnormal findings; K21.9 Gastro-esophageal reflux disease without esophagitis
CPT/HCPCS: 36415; 80053

== ENCOUNTER 2024-02-16 07:24 | Inpatient (IN) | payer BC, SELFPAY ==
[2024-02-16] VITALS (77 sets, daily range): BP systolic 58–129; BP diastolic 24–71; PULSE 35–95; RESP 11–27; TEMP 37–39.5; O2SAT 79–100
--- NOTE | 2024-02-16 07:30 | RT.EKG_ITS ---
APPROVED REPORT Exam: Resting ECG Reason for Exam: Dizzy, Fever Patient Location: E HR:57 bpm ECG Measurements Heart Rate 57 AXIS PA 195 P 21 QRSd 153 QRS -20 QT 389 T 23 QTc 379 Conclusion Sinus bradycardia...rate< 60 Right bundle branch block...QRSd>120, terminal axis(90,270) Lateral infarct, age indeterminate...Q>35mS, T neg, V5-V6 I aVL
[2024-02-16 07:56] LABS: Lactate 1.2 mmol/L (0.6-1.4)
[2024-02-16] MEDS: Normal Saline 1,000 ML 1000 ML IV ×2 (07:57→09:20)
[2024-02-16 07:58] LABS: HCT 41.7 % (40.0-50.0); HGB 14.6 g/dL (13.5-17.5); MCH 31.1 pg (27.0-33.0); MCV 89 fL (80-95); MPV 10.3 fL (8.0-11.0); RDW 11.9 % (11.8-14.1); RDW-SD 39.2 fL; WBC 2.78 10^3/uL (4.4-10.8)
--- NOTE | 2024-02-16 07:59 | NUR.NOTE ---
Nursing Note: patient had episode of unresponsiveness, whole body shaking and a pause in his heart rate for approx 4 seconds witnessed by provider and x2 nurses, pads placed on chest, patient woke. patient is current AOx4 with VS WNL at this time
--- NOTE | 2024-02-16 08:08 | ED.GENADUL_ITS ---
Discharge Plan Disposition Patient Disposition: Admit to [facility] Condition: Stable Discharge Details Clinical Impression: Bradycardia, Thrombocytopenia, AASHISH (acute kidney injury) Primary Care Provider: Jesús Medina ED Provider: Pedro Brito Home Meds and New Rx's Prescriptions: No Action colchicine 0.6 mg tablet 0.6 mg PO DAILY Qty: 90 1RF Rx Instructions: 0.6 mg daily for prophylaxis x 3 months. If gout flares, take 2 tabs immediately and one more tab in an hour nitroglycerin 0.4 mg tablet, sublingual 0.4 mg sublingual Q5M PRN Rx Instructions: do not exceed 3 doses per episode omeprazole 20 mg capsule,delayed release(DR/EC) 20 mg PO DAILY PRN (Reason: heartburn) Qty: 90 1RF aspirin 81 mg tablet,delayed release (DR/EC) 81 mg PO DAILY Qty: 90 4RF buspirone 10 mg tablet 10 mg PO TID PRN (Reason: anxiety) Qty: 30 0RF atorvastatin 80 mg tablet 80 mg PO QHS Qty: 90 4RF clopidogrel 75 mg tablet 75 mg PO DAILY Qty: 90 4RF calcitriol 0.25 mcg capsule 0.25 mcg PO DAILY Qty: 90 4RF metoprolol succinate 25 mg tablet extended release 24 hr 25 mg PO DAILY Qty: 90 4RF Rx Instructions: take 12.5mg BID lisinopril 20 mg tablet 20 mg PO DAILY Qty: 90 4RF allopurinol 100 mg tablet 100 mg PO DAILY Qty: 90 4RF HPI General Mode of arrival: wheelchair . Date/Time Provider Initiated Documentation: 02/16/24 07:32 . Limitations to Documentation: no limitations . Information obtained by: patient . History of Present Illness 53 year old M presents to the emergency department with the chief complaint of fever, lightheaded, described as moderate, Patient started experiencing this day(s) (3) and it has been constant. No relieving factors improve symptom(s), No exacerbating factors reported . Patient notes denies chest pain. Patient did receive the following treatments prior to arrival, none Related Data Home Medications ?Medication ?Instructions ?Recorded ?Confirmed colchicine 0.6 mg tablet 0.6 mg PO DAILY #90 tabs 12/17/22 12/31/23 nitroglycerin 0.4 mg sublingual 0.4 mg sublingual Q5M PRN 02/17/23 12/31/23 tablet buspirone 10 mg tablet 10 mg PO TID PRN anxiety #30 tabs 09/12/23 12/31/23 aspirin 81 mg tablet,delayed 81 mg PO DAILY #90 tabs 12/31/23 12/31/23 release omeprazole 20 mg capsule,delayed 20 mg PO DAILY PRN heartburn #90 12/31/23 12/31/23 release caps atorvastatin 80 mg tablet 80 mg PO QHS #90 tabs 02/05/24 clopidogrel 75 mg tablet 75 mg PO DAILY #90 tabs 02/05/24 allopurinol 100 mg tablet 100 mg PO DAILY #90 tabs 02/13/24 calcitriol 0.25 mcg capsule 0.25 mcg PO DAILY #90 caps 02/13/24 lisinopril 20 mg tablet 20 mg PO DAILY #90 tabs 02/13/24 metoprolol succinate 25 mg 25 mg PO DAILY #90 tabs 02/13/24 tablet,extended release 24 hr Previous Rx's ?Medication ?Instructions ?Recorded colchicine 0.6 mg tablet 0.6 mg PO DAILY #90 tabs 12/17/22 buspirone 10 mg tablet 10 mg PO TID PRN anxiety #30 tabs 09/12/23 aspirin 81 mg tablet,delayed 81 mg PO DAILY #90 tabs 12/31/23 release omeprazole 20 mg capsule,delayed 20 mg PO DAILY PRN heartburn #90 12/31/23 release caps atorvastatin 80 mg tablet 80 mg PO QHS #90 tabs 02/05/24 clopidogrel 75 mg tablet 75 mg PO DAILY #90 tabs 02/05/24 allopurinol 100 mg tablet 100 mg PO DAILY #90 tabs 02/13/24 calcitriol 0.25 mcg capsule 0.25 mcg PO DAILY #90 caps 02/13/24 lisinopril 20 mg tablet 20 mg PO DAILY #90 tabs 02/13/24 metoprolol succinate 25 mg 25 mg PO DAILY #90 tabs 02/13/24 tablet,extended release 24 hr Allergies Allergy/AdvReac Type Severity Reaction Status Date / Time No Known Allergies Allergy Verified 02/13/24 13:41 General Stated Complaint: Fever LELE: 2 Review of Systems All systems reviewed & are unremarkable except as noted in HPI and below Constitutional Constitutional: Reports chills and Reports fever(s) Cardiovascular Cardiovascular: Denies chest pain, Reports lightheadedness and Denies dyspnea Respiratory Respiratory: Denies cough and Denies dyspnea Gastrointestinal Gastrointestinal: Denies abdominal pain, Denies nausea and Denies vomiting Musculoskeletal Musculoskeletal: Denies joint swelling Exam Const General: no acute distress Orientation: alert HENMT Head: normal to inspection Ears: external ears normal General nose exam: external nose normal Mouth: moist mucous membranes Eyes General: appearance normal, both eyes and all related structures Neck Neck: normal visual inspection Resp Effort & Inspection: normal respiratory effort and able to speak in complete sentences Auscultation: clear to auscultation bilaterally Cardio Jugular venous pressure: no JVD Rate: regular rate Heart Sounds: no murmurs GI Palpation: soft and nontender Skin General skin exam: no rashes or lesions noted Neuro General: patient alert and patient oriented x3 Extrem General: normal to inspection Psych Mental Status: mental status grossly normal Course Vital Signs Vital signs: Vital Signs Temperature 37.8 C H 02/16/24 07:33 Pulse 68 02/16/24 07:33 Respiratory Rate 18 02/16/24 07:33 Blood Pressure 69/47 L 02/16/24 07:33 Pulse Oximetry 96 02/16/24 07:33 Temperature 37.8 C H 02/16/24 07:33 Temperature Source Temporal Artery Scan 02/16/24 07:33 Pulse 46 L 02/16/24 07:51 Pulse 46 L 02/16/24 07:51 Respiratory Rate 18 02/16/24 07:51 Respiratory Effort Normal, Non-Labored 02/16/24 07:55 Blood Pressure 113/56 L 02/16/24 07:51 Blood Pressure Mean 74 02/16/24 07:51 Pulse Oximetry 99 02/16/24 07:47 Lab/Test Results Lab/Test Results: 02/16/24 07:42 Blood Blood Culture - Pending 02/16/24 07:42 Blood Blood Culture - Pending Laboratory Tests Range/Units 02/16/24 07:50 VBG Lactate (0.6-1.4) mmol/L 1.2 Medical Decision Making 53-year-old male with a history of coronary artery disease status post stenting, GERD, hyperlipidemia, hypertension, CKD who comes in with chief complaint of fever for several days and then this morning feels lightheaded and disoriented. Patient was noted to be hypotensive and in sinus bradycardia in the 50s on arrival. He had a IV placed to obtain blood work and start giving IV fluids and a few minutes after this his heart rate dropped precipitously and had a period without any heartbeats and he lost consciousness and I cannot palpate a pulse so compressions were started and after 5 or 6 compressions he came to and was awake and talking. He denies ever having any chest pain, difficulty breathing. He denies any abdominal pain or vomiting. I suspect he could have had a vasovagal episode and was already bradycardic, will keep on the telemetry monitoring and check CBC, CMP, lactate, procalcitonin. He has not had any upper back discomfort and has equal peripheral pulses, my suspicion for dissection is low . He has no headaches or meningismus on exam so doubt [employer] infection. If creatinine allows will consider ct chest/abd/pelvis with iv contrast to evaluate for source of his fevers. patient with significant aashish, will obtain ct chest/abd/pelvis without contrast to eval for pneumonia and to exclude urinary obstruction Patient CBC shows a white cell count of 2 given low platelets, he says that approximately 2 weeks ago he was in [place] and was in the waiting area and had an sex is not sure of exactly where but could have been ticks. CT shows no significant findings, no urinary obstruction. His repeat EKG is showing a OH of over 208 now. I am concerned that he could be developing Lyme carditis. Given his significant bradycardia earlier and his significant AASHISH will discuss with hospitalist about admission. Differential Diagnosis Differential Diagnosis: covid, flu, dissection, vasovagal Medical Records Medical records reviewed: Yes I reviewed the patient's medical records. Lab Data Lab results reviewed: Yes I reviewed the patient's lab results. ECG Data Attestation: I personally reviewed and interpreted this ECG (s) as follows: Prior ECG tracings: available for review Interpretation: Sinus bradycardia rate of 57, right bundle branch block, no STEMI or significant changes from prior. 2nd ekg sinus rate of 63 pr 208 no stemi Quality:[facility] Health Related Social Needs: No Data to Display [facility] All Active Problems (Updated 02/16/24 @ 10:23 by Pedro Brito MD) AASHISH (acute kidney injury) (Acute) Thrombocytopenia (Chronic) Bradycardia (Acute) Anxiety (Chronic) Myalgia (Acute) Elevated liver enzymes (Acute) Bilateral leg cramps (Acute) Coronary artery disease (Chronic) GERD (gastroesophageal reflux disease) (Chronic) Foot deformity (Acute) Very large bilateral bunions with associated hammertoes adjacent, seen by podiatry Hallux valgus (acquired), right foot (Acute) Hammertoe of right foot (Acute) Diastasis recti (Acute 05/01/16) Hyperlipidemia (Acute 05/01/16) Gout (Chronic) 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 ASD ?VSD-pt. states he is unsure ofwhich defect it was Family History Mother Essential hypertension Father Myocardial infarction Brother Heart disease Myocardial infarction Maternal Cousin Factor 5 Leiden mutation, heterozygous Maternal Aunt Factor 5 Leiden mutation, heterozygous Grandmother Diabetes Heart disease Family history Heart disease STRONG HX OF HEART DISEASE Social History Smoking/Tobacco Use Status: Former Tobacco Use tobacco type: cigarettes Quit Date: 05/19/98 Tobacco: How many years used: 10 Second Hand Exposure: Yes Smoking risk assessment performed?: Yes Alcohol Intake: current Alcohol Intake frequency: a few times a week Alcohol type: beer Drug use: Never Substance use type: does not use Caregiver/Support person: No Household members: spouse Housing: house Communication Needs: None Do you need help understanding health information?: Rarely Pets and animals: No Sexually active: Yes Do you think of yourself as: straight/heterosexual Current gender identity: male What is your relationship status?: How often do you talk on the phone with friends or family?: decline to answer How often do you get together with friends or relatives?: decline to answer How often do you attend protestant or congregational services?: decline to answer Do you belong to any clubs or organized social groups?: decline to answer Panel score (0-1 are the most socially isolated patients): 1 Special yvette needs: No Seatbelt use: always 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
--- NOTE | 2024-02-16 08:15 | DI.CT_ITS ---
Exam(s) CT CHEST/ABD/PEL WO EXAM: CT CHEST/ABD/PEL WO CLINICAL HISTORY: fever, weakness, AASHISH, ?pneumonia, ?urinary obst. TECHNIQUE: Imaging Protocol: Axial computed tomography images with coronal and sagittal reformatted images were created and reviewed CONTRAST MATERIAL: Noncontrast COMPARISON: CT CT ABDOMEN WO/W from 12/13/2022 CT,NM,TMT NM MPI REST STRESS GRP from 12/25/2023 FINDINGS: CHEST: Mildly limited by respiratory motion. Tracheobronchial tree: Patent. Pulmonary parenchyma: No consolidation or dominant measurable mass. Pleura: No effusion or pneumothorax. Mediastinum: Within normal limits. Aorta: Thoracic portion non-dilated. Pulmonary arteries: No visible emboli. Heart: No pericardial effusion. Enlarged, particularly left ventricle. Coronary artery calcificat ions versus stents Bones: Sternal wires. Degenerative changes and mild scoliosis. No lytic or blastic lesions.No compr ession fractures. Soft tissues: Unremarkable. ABDOMEN and PELVIS: Liver: Normal density. No measurable mass. Gallbladder and biliary tract: No evidence of stones or wall thickening. No biliary dilatation. Pancreas: Normal density, no abnormal calcifications or inflammatory process. Spleen: Normal. Kidneys: Normal size, contour and axis. No radiodense stones. No obstructive uropathy. No suspicious masses seen. Adrenal glands: No masses seen. Aorta: Abdominal portion non-dilated. Lymph nodes: Within normal limits. Soft tissues: Small fat containing umbilical hernia. Bladder: Unremarkable. Bowel: No obstruction or bowel wall thickening. Peritoneal cavity: No ascites. No focal collection. No mesenteric inflammatory response. No free ai r. Bones: Unremarkable for age. Reproductive organs: Prostate mildly enlarged. IMPRESSION: No acute abnormality in the chest, abdomen or pelvis. RADIATION DOSE DELIVERED: 655.65mGy.cm Total DLP DATA REPOSITORY: All CT scans at this facility are submitted to the National Radiology Data Registry (NRDR) Dose Index Registry (DIR) with the [employer] ([employer]). RADIATION OPTIMIZATION: All CT scans at this facility use at least one of these dose optimization te chniques: automated exposure control; mA and/or kV adjustment per patient size (includes targeted exa ms where dose is matched to clinical indication); or iterative reconstruction.
[2024-02-16 08:23] LABS: ALT 136 U/L (16-63); AST 151 U/L (15-37); Absolute Neutrophil Count 2.06 10^3/uL (1.2-6.7); Albumin 3.3 g/dL (3.4-5.0); Alkaline Phosphatase 222 U/L (46-116); Anion Gap 14.5 mmol/L (3-11); BUN 51 mg/dL (7-18); Bands % 10 %; Bilirubin, Total 2.13 mg/dL (0.2-1.0); CO2 19.5 mmol/L (21.0-32.0); Calcium 8.8 mg/dL (8.5-10.1); Chloride 95 mmol/L (98-107); Estimated GFR 10.85 (mL/min/1.73m2); Glucose 126 mg/dL (74-106); Magnesium 1.9 mg/dL (1.8-2.4); Platelet Count 76 10^3/uL (130-400); Potassium 3.8 mmol/L (3.5-5.1); Sodium 129 mmol/L (136-145); Total Protein 6.9 g/dL (6.4-8.2); Troponin I 52 ng/L (<or=76)
[2024-02-16 08:24] LABS: Absolute Lymphocyte Count 0.56 10^3/uL (1.2-3.4); Absolute Monocyte Count 0.17 10^3/uL (0.1-0.8); Atypical Lymphocytes % 1 %; CREATININE 5.8 mg/dL (0.70-1.30); Diff Comment Manual Differential; RBC Morphology Normal
[2024-02-16 08:56] LABS: Procalcitonin 2.9 ng/mL
--- NOTE | 2024-02-16 09:30 | RT.EKG_ITS ---
APPROVED REPORT Exam: Resting ECG Reason for Exam: bradycardia Patient Location: E HR:63 bpm ECG Measurements Heart Rate 63 AXIS VT 208 P 9 QRSd 162 QRS -26 QT 395 T 3 QTc 405 Conclusion Sinus rhythm...normal P axis, V-rate 60- 99 Borderline prolonged VT interval...VT >202, V-rate 50- 90 Right bundle branch block...QRSd>120, terminal axis(90,270) Probable left ventricular hypertrophy...multiple LVH criteria
[2024-02-16] MEDS: Normal Saline Flush 10 ML SYR IVP ×2 (09:37→19:48)
[2024-02-16] MEDS: cefTRIAXone 2 GM/50 ML BAG IVPB (09:41)
[2024-02-16 10:08] LABS: Troponin I 45 ng/L (<or=76)
[2024-02-16 10:38] LABS: Bilirubin Negative (Negative); Blood Small (Negative); Clarity Sl Cloudy (Clear); Glucose Negative (Negative); Ketones Negative (Negative); Leukocyte Esterase Negative (Negative); Nitrite Negative (Negative); pH 5.5 (5-8)
[2024-02-16 10:49] LABS: Bacteria Rare HPF (Negative); C & S Indicated? No; Casts 0-2 Hyaline LPF (Negative); Crystals Few Amorphous HPF (Negative); Epithelial Cells Rare HPF (Negative); Mucus Negative (Negative); WBC 0-2 HPF (0-5)
[2024-02-16 11:35] LABS: Troponin I 40 ng/L (<or=76)
--- NOTE | 2024-02-16 11:40 | W.PM.HP.N ---
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 Therapies have begun for Lyme and Anaplasma while lab testing (which may be negative due to the acuity of the symptoms). Lyme may be contributing to the bradycardia and the fevers/neutropenia/thrombocytopenia are highly supportive of the diagnosis of anaplasmosis. (2) AASHISH (acute kidney injury): Start date: 02/16/24 Status: Acute Assessment and plan: This is likely due to dehyration. Will hydrate patient with LR at 125cc/hr and liberal PO fluids. Follow creatinine daily. 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 Follow daily platelet counts. Continue plavix and ASA for CAD/Stints pending cardiology review. No active signs of bleeding at this time. (4) Bradycardia: Start date: 02/16/24 Status: Acute Assessment and plan: Possibly vagal in origin, possibly multifactoral including beta blockade, Acute Lyme disease, increased vagal tone. Cardiology consult requested. Continue cardiac monitoring. Ambulate with assistance. (5) Anxiety: Start date: 02/16/24 Status: Chronic Assessment and plan: appears stable at this time. will prescribe alprazolam as needed for anxiety as a short term treatment. (6) Elevated liver enzymes: Start date: 02/16/24 Status: Acute Assessment and plan: Likely secondary to Anaplasmosis. Follow levels daily while hospitalized and receiving therapy for acute anaplasmosis. No signs of hepatic impairment at this time. (7) Myalgia: Start date: 02/02/24 Status: Acute Assessment and plan: Acute issue, likley due to tick borne illness Lyme/Anaplasmosis. (8) Bilateral leg cramps: Start date: 02/09/24 Status: Acute Assessment and plan: stable at this time. (9) Coronary artery disease: Status: Chronic Assessment and plan: No signs of Qualifiers: Associated angina: without angina Coronary Disease-Associated Artery/Lesion type: [place] artery [place] vs. transplanted heart: [place] heart Qualified Code(s): I25.10 - Atherosclerotic heart disease of [place] coronary artery without angina pectoris (10) GERD (gastroesophageal reflux disease): Status: Chronic Assessment and plan: stable at this time. Continue omeprazole. continue to monitor symptoms. (11) Foot deformity: Status: Acute Assessment and plan: stable at this time. follow up with cross roller as outpatient. (12) Hyperlipidemia: Status: Acute Assessment and plan: stable at this time. will hold PO statin agent due to potential for interaction with Azithromycin. Presentation not consistent with adverse reaction from statin. (13) Gout: Status: Chronic Assessment and plan: Patient wt history of gouty attacks, but not currently taking gout medications. Will watch closely for signs of gouty flare due to dehydration and AASHSIH which may precipitate gout flare. No complaints at this time of gouty arthritis or attack. (14) Hypertension: Status: Chronic Assessment and plan: continue close monitoring of blood pressure. hold lisinopril due to AASHISH at this time. Resume when AASHISH resolved. Qualifiers: Hypertension type: primary hypertension Qualified Code(s): I10 - Essential (primary) hypertension (15) CKD (chronic kidney disease) stage 3, GFR 30-59 ml/min: Status: Acute Assessment and plan: Now with acute on chronic RF. Unclear of etiology of CKD Normal resting creatinine ~ 2.1 Qualifiers: Chronic kidney disease stage 3 subtype: unspecified whether 3a or 3b Qualified Code(s): N18.30 - Chronic kidney disease, stage 3 unspecified (16) History of NC (myocardial infarction): Status: Acute Assessment and plan: Cardiology consult requested. (17) HEART SURGERY: Assessment and plan: Distant history of heart surgery as 3 yo. not contributory to this hospitalization. History of Present Illness History of Present Illness Chief Complaint: Light headedness when standing erect x 2 days. Narrative: This is a pleasant 53-year-old gentleman with a past medical history significant for coronary artery disease status post stinting x 2, following with cardiology Dr Lazo on dual antiplatelet therapy who was in his usual state of health until approximately 2 weeks ago when he began to develop myalgias and migratory pains. 3 weeks ago he was in [place], [place] (south of [place]) where he rented some land to set up [place] cameras for hunting purposes. He was bitten by many bugs. He was there with a friend of his who became ill as well. They both had many bug bites that they characterized as chiggers but the patient does not recall seeing star ticks on his body. He was bit literally hundreds of times. His friend became ill with fevers chills myalgias and went to a local urgent care where he was treated with antibiotics and is doing relatively well. This patient developed high fevers to 103F measured at home with shaking chills and drenching night sweats and was recently seen in Urgent care on Feb 12. He was not prescribed medications and was discharged home. He persevered at home until this morning when experienced his second straight day of lightheadedness when standing erect. He felt faint and almost fainted. His brought him to the emergency department. In the ED, while he was being evaluated, an IV was being placed and the patient had a episode of severe bradycardia and chest compressions were performed. External defibrillator pads were placed. Troponins have been sent and are without elevation x 2. Since that time, the patient has been stable with monitored HR in the 70s. He states he normally has a heart rate in the 60s due to the metoprolol since his Non STEMI NC. He does not believe he took any extra doses of metoprolol recently. The patient has a rash on his right flank with at least #30 - 1 to 2 mm diameter faintly erythematous raised papules. None of them are pustular. There is no evidence of retained foreign insect material in these lesions at the time of my exam. The patient follows with Dr. Lazo of cardiology. He had stints x 2 placed and continues on aspirin and Plavix since that time. Patient has a history of chronic kidney disease states he has had small kidneys since he was young. He follows in [place] for his renal disease but has not been seen there in close to a year. He has a history of gout for which he is taking colchicine and allopurinol but he is on neither medication at this time. Patient lives at home with his and son. They have no pets. Everyone else is well at home. Only recent travel is to [facility] as noted above about 3 weeks ago. Patient does not have an advanced directive and desires full resuscitative efforts should any cardiac events occur. He received ceftriaxone 2 g IV in the ED and will receive IV azithromycin as well. Blood cultures, troponins and tick borne serologies and studies are obtained for laboratory analysis. Troponins are negative x 2. EKG results are personally reviewed by myself and consistant with a negative stress test in December of 2023 which revealed RBBB, seen on today's EKG with prolonged WV interval on Today's EKG. No second or third degree heart block has been noted. Review of Systems Narrative: A 14 point review of systems was performed and negative except as noted below and in the HPI. PFSH All Active Problems (Updated 02/16/24 @ 14:53 by Broderick Davis DO) Tick-borne disease (Acute) AASHISH (acute kidney injury) (Acute) Thrombocytopenia (Chronic) Bradycardia (Acute) Anxiety (Chronic) Myalgia (Acute) Elevated liver enzymes (Acute) Bilateral leg cramps (Acute) Coronary artery disease (Chronic) GERD (gastroesophageal reflux disease) (Chronic) Foot deformity (Acute) Very large bilateral bunions with associated hammertoes adjacent, seen by podiatry Hallux valgus (acquired), right foot (Acute) Hammertoe of right foot (Acute) Diastasis recti (Acute 05/01/16) Hyperlipidemia (Acute 05/01/16) Gout (Chronic) 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 ASD ?VSD-pt. states he is unsure ofwhich defect it was Family History Mother Essential hypertension Father Myocardial infarction Brother Heart disease Myocardial infarction Maternal Cousin Factor 5 Leiden mutation, heterozygous Maternal Aunt Factor 5 Leiden mutation, heterozygous Grandmother Diabetes Heart disease Family history Heart disease STRONG HX OF HEART DISEASE Social History Smoking/Tobacco Use Status: Former Tobacco Use tobacco type: cigarettes Quit Date: 05/19/98 Tobacco: How many years used: 10 Second Hand Exposure: Yes Smoking risk assessment performed?: Yes Alcohol Intake: current Alcohol Intake frequency: a few times a week Alcohol type: beer Drug use: Never Substance use type: does not use Caregiver/Support person: No Household members: spouse Housing: house Communication Needs: None Do you need help understanding health information?: Rarely Pets and animals: No Sexually active: Yes Do you think of yourself as: straight/heterosexual Current gender identity: male What is your relationship status?: How often do you talk on the phone with friends or family?: decline to answer How often do you get together with friends or relatives?: decline to answer How often do you attend hindu or amish services?: decline to answer Do you belong to any clubs or organized social groups?: decline to answer Panel score (0-1 are the most socially isolated patients): 1 Special yvette needs: No Seatbelt use: always Drive intox or ride w/intox bulk driver: No Do you feel safe at home: Yes Do you feel safe in your relationship?: Yes Meds Allergies and Home Medications Allergies Allergy/AdvReac Type Severity Reaction Status Date / Time No Known Allergies Allergy Verified 02/13/24 13:41 Home Medications ?Medication ?Instructions ?Recorded ?Confirmed ?Type colchicine 0.6 mg tablet 0.6 mg PO DAILY #90 tabs 12/17/22 12/31/23 Rx nitroglycerin 0.4 mg sublingual 0.4 mg sublingual Q5M PRN 02/17/23 12/31/23 History tablet aspirin 81 mg tablet,delayed 81 mg PO DAILY #90 tabs 12/31/23 12/31/23 Rx release omeprazole 20 mg capsule,delayed 20 mg PO DAILY PRN heartburn #90 12/31/23 12/31/23 Rx release caps atorvastatin 80 mg tablet 80 mg PO QHS #90 tabs 02/05/24 Rx clopidogrel 75 mg tablet 75 mg PO DAILY #90 tabs 02/05/24 Rx allopurinol 100 mg tablet 100 mg PO DAILY #90 tabs 02/13/24 Rx calcitriol 0.25 mcg capsule 0.25 mcg PO DAILY #90 caps 02/13/24 Rx lisinopril 20 mg tablet 20 mg PO DAILY #90 tabs 02/13/24 Rx metoprolol succinate 25 mg 25 mg PO DAILY #90 tabs 02/13/24 Rx tablet,extended release 24 hr Exam Narrative Exam Narrative: Patient is alert and oriented x 3 and in no acute distress HEENT: Neck supple, Conjunctiva non-injected, sclera non-icteric, Pupils equal and reactive to light symmetrically, CHEST: Bilaterally symmetrical with inspiration and expiration. No use of accessory muscles of respiration. No nasal flaring. LUNGS: Clear to auscultation bilaterally, no rales, rhonchi or wheeze, no pleural friction rub, no post-tussive crackles COR: RRR without murmur, normal S1, S2, no rub or ileana. External cardiac defibrillator pads in place. Old, well healed midline sternotomy incision with no signs of disruption ABDOMEN: Soft, non tender diffusely, normally active bowel sounds diffusely, No hepatosplenomegaly, No abdominal bruit, no masses, no tenderness on deep abdominal palpation. G/U: deferred Rectal: deferred MUSCULOSKELETAL: Bilaterally symmetrical, no muscle belly tenderness or mass DERMIS: Skin warm and dry, no ulcers, Rash along R flank with small 1-2 mm papules with faint erythema and erythematous base. EXTREMITIES: No cyanosis, clubbing or edema, feet with bilateral bunions, patient sees podiatry. No hand or wrist abnormalities. Moves all extremities normally without difficulty. NEUROLOGICAL: Cranial nerves intact II-XII without notable deficit, No peripheral neurosensory or motor deficits noted. LYMPH: No anterior or posterior cervical, no supraclavicular, No axillary, no epitrochlear or femoral lymphadenopathy. Results Labs 02/16/24 07:50 02/16/24 07:50 Labs: Laboratory Results - last 24 hr 02/16/24 02/16/24 02/16/24 07:50 07:50 09:42 WBC 2.78 L RBC 4.70 Hgb 14.6 Hct 41.7 MCV 89 MCH 31.1 MCHC 35.0 RDW 11.9 Plt Count 76 L MPV 10.3 Immature Gran % 0.0 Neutrophils % 64.0 Band Neutrophils % 10 Lymphocytes % 19.0 Atypical Lymphs % 1 Monocytes % 6.0 Eosinophils % 0.0 Basophils % 0.0 Nucleated RBC % 0.0 Absolute Neutrophils 2.06 Absolute Lymphocytes 0.56 L Absolute Monocytes 0.17 Absolute Eosinophils 0.00 Absolute Basophils 0.00 RBC Morphology Normal VBG Lactate 1.2 Sodium 129 L Potassium 3.8 Chloride 95 L Carbon Dioxide 19.5 L Anion Gap 14.5 H BUN 51 H Creatinine 5.8 H* Est GFR (CKD-EPI 2020) 10.85 Glucose 126 H Calcium 8.8 Magnesium 1.9 Total Bilirubin 2.13 H AST 151 H ALT 136 H Alkaline Phosphatase 222 H Troponin I 52 Cancelled 45 Total Protein 6.9 Albumin 3.3 L Procalcitonin 2.9 Urine Color Urine Clarity Urine pH Ur Specific [place] Urine Protein Urine Ketones Urine Blood Urine Nitrite Urine Bilirubin Urine Urobilinogen Ur Leukocyte Esterase Urine RBC Urine WBC Ur Epithelial Cells Urine Crystals Urine Bacteria Urine Casts Urine Mucus Ur Culture Indicated? Urine Glucose 02/16/24 02/16/24 10:07 11:08 WBC RBC Hgb Hct MCV MCH MCHC RDW Plt Count MPV Immature Gran % Neutrophils % Band Neutrophils % Lymphocytes % Atypical Lymphs % Monocytes % Eosinophils % Basophils % Nucleated RBC % Absolute Neutrophils Absolute Lymphocytes Absolute Monocytes Absolute Eosinophils Absolute Basophils RBC Morphology VBG Lactate Sodium Potassium Chloride Carbon Dioxide Anion Gap BUN Creatinine Est GFR (CKD-EPI 2020) Glucose Calcium Magnesium Total Bilirubin AST ALT Alkaline Phosphatase Troponin I 40 Total Protein Albumin Procalcitonin Urine Color Yellow Urine Clarity Sl Cloudy Urine pH 5.5 Ur Specific [place] 1.010 Urine Protein 30 H Urine Ketones Negative Urine Blood Small H Urine Nitrite Negative Urine Bilirubin Negative Urine Urobilinogen 1.0 H Ur Leukocyte Esterase Negative Urine RBC 3-5 H Urine WBC 0-2 Ur Epithelial Cells Rare Urine Crystals Few Amorphous Urine Bacteria Rare Urine Casts 0-2 Hyaline Urine Mucus Negative Ur Culture Indicated? No Urine Glucose Negative Last Vital Signs Temp 37.8 C H 02/16/24 07:33 Pulse 57 L 02/16/24 08:16 Resp 14 02/16/24 08:16 BP 95/50 L 02/16/24 08:16 Pulse Ox 99 02/16/24 08:16 H&P: Quality VTE Contraindication No VTE Prophylaxis: Treatment not indicated (low risk patient on dual antiplatelet therapy with current thrombocytopenia.) PAWSS Pt Consumed Any Amount of Alcohol Within the Last 30 days OR had positive ROSITA Upon Admission: No Time Spent Time spent with Patient: >75 minutes Time was spent: preparing to see the patient(eg.review tests), obtaining and/or reviewing separately otained hiistory, ordering medications,tests, procedures, referring, communicating with other health critical care unit nurse, indepentently interpreting results, counseling the patient and care coordination
--- NOTE | 2024-02-16 13:03 | W.PCEDHO ---
Registration Status: Primary Language: Preferred Language: ED Information & Data Chief Complaint Fever 02/16/24 08:12 Triage Note had fever since 02/16/24 07:33 with no other symptoms, woke up this morning light headed, dizzy and disorientated Medical / Surgical History (Last Reviewed 02/13/24 @ 13:51 by Madina Shaikh NP) Elevated blood pressure reading (Last Reviewed 02/13/24 @ 13:51 by Madina Shaikh NP) HEART SURGERY Most Recent Vital Signs Temperature 37.8 C H 02/16/24 07:33 Temperature Source Temporal Artery Scan 02/16/24 07:33 Pulse 57 L 02/16/24 08:16 Pulse 59 L 02/16/24 08:16 Respiratory Rate 14 02/16/24 08:16 Respiratory Effort Normal, Non-Labored 02/16/24 07:55 Blood Pressure 95/50 L 02/16/24 08:16 Blood Pressure Mean 60 02/16/24 08:16 Pulse Oximetry 99 02/16/24 08:16 Allergies No Known Allergies Allergy (Verified 02/13/24 13:41) Precautions Isolation Standard precaution 02/16/24 07:55 Active Medications Generic Name Dose Route Start Last Admin Trade Name Freq PRN Reason Stop Dose Admin Sodium Chloride 0 ml 02/16/24 07:41 02/16/24 09:37 Normal Saline Flush 10 Ml Syr IVP 20 ml PRN PRN Administration IV IV Catheter Type [Left Saline Lock Antecubital] IV Catheter Type [Right Saline Lock Antecubital] IV Catheter Gauge [Left 20 Antecubital] IV Catheter Gauge [Right 18 Antecubital] Diet Orders Category Date Time Status Heart Healthy Eating [DIET] Nutrition 02/16/24 Lunch Active Diagnostics 02/16/24 02/16/24 02/16/24 Range/Units 12:26 11:08 10:07 WBC (4.4-10.8) 10^3/uL RBC (4.36-5.78) 10^6/uL Hgb (13.5-17.5) g/dL Hct (40.0-50.0) % MCV (80-95) fL MCH (27.0-33.0) pg MCHC (32.0-36.0) % RDW (11.8-14.1) % Plt Count (130-400) 10^3/uL MPV (8.0-11.0) fL Immature Gran % % Neutrophils % % Band Neutrophils % % Lymphocytes % % Atypical Lymphs % % Monocytes % % Eosinophils % % Basophils % % Nucleated RBC % (0.0-0.3) % Absolute Neutrophils (1.2-6.7) 10^3/uL Absolute Lymphocytes (1.2-3.4) 10^3/uL Absolute Monocytes (0.1-0.8) 10^3/uL Absolute Eosinophils (0.0-0.7) 10^3/uL Absolute Basophils (0.0-0.2) 10^3/uL RBC Morphology VBG Lactate (0.6-1.4) mmol/L Sodium (136-145) mmol/L Potassium (3.5-5.1) mmol/L Chloride (98-107) mmol/L Carbon Dioxide (21.0-32.0) mmol/L Anion Gap (3-11) mmol/L BUN (7-18) mg/dL Creatinine (0.70-1.30) mg/dL Est GFR (CKD-EPI 2020) (mL/min/1.73m2) Glucose (74-106) mg/dL Calcium (8.5-10.1) mg/dL Magnesium (1.8-2.4) mg/dL Total Bilirubin (0.2-1.0) mg/dL AST (15-37) U/L ALT (16-63) U/L Alkaline Phosphatase (46-116) U/L Troponin I 40 (<or=76) ng/L Total Protein (6.4-8.2) g/dL Albumin (3.4-5.0) g/dL Procalcitonin ng/mL Urine Color Yellow (Yellow) Urine Clarity Sl Cloudy (Clear) Urine pH 5.5 (5-8) Ur Specific [place] 1.010 (1.005-1.025) Urine Protein 30 H (Neg-Trace) mg/dL Urine Ketones Negative (Negative) mg/dL Urine Blood Small H (Negative) Urine Nitrite Negative (Negative) Urine Bilirubin Negative (Negative) Urine Urobilinogen 1.0 H (Up to 0.2) mg/dL Ur Leukocyte Esterase Negative (Negative) Urine RBC 3-5 H (0-2) HPF Urine WBC 0-2 (0-5) HPF Ur Epithelial Cells Rare (Negative) HPF Urine Crystals Few Amorphous (Negative) HPF Urine Bacteria Rare (Negative) HPF Urine Casts 0-2 Hyaline (Negative) LPF Urine Mucus Negative (Negative) Ur Culture Indicated? No Urine Glucose Negative (Negative) mg/dL B. divergens/MO-1 PCR Babesia duncani (PCR) Babesia microti DNA PCR Lyme Disease Antibody COVID-19 Source Pending SARS-CoV-2 (PCR) Pending E.chaffeensis DNA (PCR) E.ewingii/canis DNA PCR E.muris eauclairensis (PCR) Influenza Type A (PCR) Pending Influenza Type B (PCR) Pending RSV (PCR) Pending A. phagocytophilum (PCR) Blood B. miyamotoi (PCR) 02/16/24 02/16/24 02/16/24 Range/Units 09:42 07:50 07:50 WBC 2.78 L (4.4-10.8) 10^3/uL RBC 4.70 (4.36-5.78) 10^6/uL Hgb 14.6 (13.5-17.5) g/dL Hct 41.7 (40.0-50.0) % MCV 89 (80-95) fL MCH 31.1 (27.0-33.0) pg MCHC 35.0 (32.0-36.0) % RDW 11.9 (11.8-14.1) % Plt Count 76 L (130-400) 10^3/uL MPV 10.3 (8.0-11.0) fL Immature Gran % 0.0 % Neutrophils % 64.0 % Band Neutrophils % 10 % Lymphocytes % 19.0 % Atypical Lymphs % 1 % Monocytes % 6.0 % Eosinophils % 0.0 % Basophils % 0.0 % Nucleated RBC % 0.0 (0.0-0.3) % Absolute Neutrophils 2.06 (1.2-6.7) 10^3/uL Absolute Lymphocytes 0.56 L (1.2-3.4) 10^3/uL Absolute Monocytes 0.17 (0.1-0.8) 10^3/uL Absolute Eosinophils 0.00 (0.0-0.7) 10^3/uL Absolute Basophils 0.00 (0.0-0.2) 10^3/uL RBC Morphology Normal VBG Lactate 1.2 (0.6-1.4) mmol/L Sodium 129 L (136-145) mmol/L Potassium 3.8 (3.5-5.1) mmol/L Chloride 95 L (98-107) mmol/L Carbon Dioxide 19.5 L (21.0-32.0) mmol/L Anion Gap 14.5 H (3-11) mmol/L BUN 51 H (7-18) mg/dL Creatinine 5.8 H* (0.70-1.30) mg/dL Est GFR (CKD-EPI 2020) 10.85 (mL/min/1.73m2) Glucose 126 H (74-106) mg/dL Calcium 8.8 (8.5-10.1) mg/dL Magnesium 1.9 (1.8-2.4) mg/dL Total Bilirubin 2.13 H (0.2-1.0) mg/dL AST 151 H (15-37) U/L ALT 136 H (16-63) U/L Alkaline Phosphatase 222 H (46-116) U/L Troponin I 45 Cancelled 52 (<or=76) ng/L Total Protein 6.9 (6.4-8.2) g/dL Albumin 3.3 L (3.4-5.0) g/dL Procalcitonin 2.9 ng/mL Urine Color (Yellow) Urine Clarity (Clear) Urine pH (5-8) Ur Specific [place] (1.005-1.025) Urine Protein (Neg-Trace) mg/dL Urine Ketones (Negative) mg/dL Urine Blood (Negative) Urine Nitrite (Negative) Urine Bilirubin (Negative) Urine Urobilinogen (Up to 0.2) mg/dL Ur Leukocyte Esterase (Negative) Urine RBC (0-2) HPF Urine WBC (0-5) HPF Ur Epithelial Cells (Negative) HPF Urine Crystals (Negative) HPF Urine Bacteria (Negative) HPF Urine Casts (Negative) LPF Urine Mucus (Negative) Ur Culture Indicated? Urine Glucose (Negative) mg/dL B. divergens/MO-1 PCR Pending Babesia duncani (PCR) Pending Babesia microti DNA PCR Pending Lyme Disease Antibody Pending COVID-19 Source SARS-CoV-2 (PCR) E.chaffeensis DNA (PCR) Pending E.ewingii/canis DNA PCR Pending E.muris eauclairensis (PCR) Pending Influenza Type A (PCR) Influenza Type B (PCR) RSV (PCR) A. phagocytophilum (PCR) Pending Blood B. miyamotoi (PCR) Pending 02/16/24 08:38 Blood Culture - Pending Blood 02/16/24 08:50 Blood Culture - Pending Blood Intake and Output - 24 Hour Total 02/16/24 07:24 thru 02/16/24 10:11 Intake Total 1060 Output Total 100 Balance 960 Weight 92.7 kg Intake: IV 1060 Output: Urine 100 Other: Urine Color Light Lizeth Urine Appearance Clear Falls Risk Assessment History of Falls No History 02/16/24 07:56 Contributing Factors No Factors 02/16/24 07:56 Ambulatory Aids Independent 02/16/24 07:56 Tubes/Lines None 02/16/24 07:56 Gait Evaluation No gait disturbance 02/16/24 07:56 Fall Total Score 0 02/16/24 07:56 Level of Risk Standard/Low Risk 02/16/24 07:56 Notes 02/16/24 07:59 Nursing Notes by Lizeth Ruelas Nursing Note: patient had episode of unresponsiveness, whole body shaking and a pause in his heart rate for approx 4 seconds witnessed by provider and x2 nurses, pads placed on chest, patient woke. patient is current AOx4 with VS WNL at this time Initialized on 02/16/24 07:59 - END OF NOTE v v v v v v v v v Sending and/or Receiving Nurses: Please use comment section below to note any information pertinent to the patient hand-off not included above. Information / Comments: Report received from: ariel Hazel
[2024-02-16 13:09] LABS: COVID-19 PCR Negative (Negative); Influenza A PCR Negative (Negative); Influenza B PCR Negative (Negative); RSV PCR Negative (Negative)
[2024-02-16 13:10] LABS: Source Nasopharynx
[2024-02-16] MEDS: AZITHROMYCIN 500 MG in Normal Saline 250 ML 250 MG IVPB (14:48)
[2024-02-16] MEDS: Normal Saline 1,000 ML 500 ML IV (17:03)
[2024-02-16] MEDS: Acetaminophen 325 MG TAB PO (17:11)
[2024-02-16] MEDS: Normal Saline 1,000 ML 125 ML IV (19:09)
[2024-02-17] VITALS (54 sets, daily range): BP systolic 103–131; BP diastolic 65–84; PULSE 58–103; RESP 12–26; TEMP 36.8–38; O2SAT 96–99
[2024-02-17] MEDS: Normal Saline 1,000 ML 125 ML IV ×2 (02:23→20:30)
[2024-02-17 06:06] LABS: Abs Immature Grans 0.01 10^3/uL (0.0-0.06); HCT 32.2 % (40.0-50.0); HGB 11.2 g/dL (13.5-17.5); MCH 30.9 pg (27.0-33.0); MCHC 34.8 % (32.0-36.0); MCV 89 fL (80-95); MPV 10.7 fL (8.0-11.0); RBC 3.63 10^6/uL (4.36-5.78); RDW 12.4 % (11.8-14.1); WBC 2.31 10^3/uL (4.4-10.8)
[2024-02-17 06:26] LABS: ALT 212 U/L (16-63); AST 293 U/L (15-37); Albumin 2.4 g/dL (3.4-5.0); Alkaline Phosphatase 217 U/L (46-116); Anion Gap 12.4 mmol/L (3-11); BUN 60 mg/dL (7-18); Bilirubin, Total 1.16 mg/dL (0.2-1.0); CO2 16.6 mmol/L (21.0-32.0); Calcium 7.4 mg/dL (8.5-10.1); Chloride 104 mmol/L (98-107); Estimated GFR 10.02 (mL/min/1.73m2); Glucose 109 mg/dL (74-106); Potassium 3.8 mmol/L (3.5-5.1); Sodium 133 mmol/L (136-145); Total Protein 5.3 g/dL (6.4-8.2)
[2024-02-17 06:32] LABS: CREATININE 6.2 mg/dL (0.70-1.30)
--- NOTE | 2024-02-17 06:37 | NUR.NOTE ---
Nursing Note: Pt's creatinine=6.2, up from 5.8 day prior, Dr Wills made aware, no orders given.
[2024-02-17 06:42] LABS: Absolute Neutrophil Count 1.13 10^3/uL (1.2-6.7)
[2024-02-17 06:43] LABS: Absolute Eosinophil Count 0.05 10^3/uL (0.0-0.7); Absolute Monocyte Count 0.23 10^3/uL (0.1-0.8); Atypical Lymphocytes % 1 %; Diff Comment Manual Differential; RBC Morphology Normal
[2024-02-17 06:44] LABS: Platelet Count 66 10^3/uL (130-400)
[2024-02-17 08:21] LABS: Creatine Kinase 128 U/L (39-308); Uric Acid 7.1 mg/dL (3.5-7.2)
[2024-02-17] MEDS: Normal Saline Flush 10 ML SYR IVP ×2 (08:21→20:32)
[2024-02-17] MEDS: Calcitriol 0.25 MCG CAP PO (08:22)
[2024-02-17] MEDS: Aspirin E.C. 81 MG TABEC PO (08:22)
[2024-02-17] MEDS: Allopurinol 100 MG TAB PO (08:22)
[2024-02-17] MEDS: Clopidogrel 75 MG TAB PO (08:22)
[2024-02-17] MEDS: Acetaminophen 325 MG TAB PO ×2 (08:40→18:57)
--- NOTE | 2024-02-17 08:57 | W.PM.PROGNOT ---
Date of Service Date of service: 02/17/24 Time of Service: 07:58 Assessment and Plan Assessment and plan (1) Tick-borne disease: Start date: 01/26/24 Status: Acute Assessment and plan: Patient's medical issues began following hundreds of insect bites in [facility] while setting trail cameras. 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 Therapies have begun for Lyme and Anaplasma while lab testing (which may be negative due to the acuity of the symptoms). Lyme may be contributing to the bradycardia and the fevers/neutropenia/thrombocytopenia are highly supportive of the diagnosis of anaplasmosis. Continue ceftriaxone and azithromycin at this time. Patient appears to have significantly clinical improvement however his laboratories have not reflected his clinical improvement. (2) AASHISH (acute kidney injury): Start date: 02/16/24 Status: Acute Assessment and plan: This is likely due to dehyration. Will hydrate patient with LR at 125cc/hr and liberal PO fluids. Follow creatinine daily. Creatinine corwin from 5.8 admission 622 today. Will repeat creatinine and 1600 today. 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 Follow daily platelet counts. Continue plavix and ASA for CAD/Stints pending cardiology review. No active signs of bleeding at this time. Patient has rejected PCD's and RALPH hose. I discussed this with him and he still declines them. Will repeat CBC at 1600 today and follow-up platelet. (4) Bradycardia: Start date: 02/16/24 Status: Acute Assessment and plan: Possibly vagal in origin, possibly multifactoral including beta blockade, Acute Lyme disease, increased vagal tone. Cardiology consult requested. Continue cardiac monitoring. Ambulate with assistance. No further signs of heart rate or postural hypotension at this time. (5) Anxiety: Start date: 02/16/24 Status: Chronic Assessment and plan: appears stable at this time. Continue alprazolam as needed for anxiety as a short term treatment. No further signs of anxiety. remains pleasant on a stabilizing force at his bedside. (6) Elevated liver enzymes: Start date: 02/16/24 Status: Acute Assessment and plan: Likely secondary to Anaplasmosis. Follow levels daily while hospitalized and receiving therapy for acute anaplasmosis. No signs of hepatic impairment at this time. Bilirubin is elevated as well. This is consistent with anaplasmosis. Will repeat liver enzymes this afternoon at 1600. (7) Myalgia: Start date: 02/02/24 Status: Acute Assessment and plan: Acute issue, likley due to tick borne illness Lyme/Anaplasmosis. Myalgias have improved today. (8) Bilateral leg cramps: Start date: 02/09/24 Status: Acute Assessment and plan: stable at this time. (9) Coronary artery disease: Status: Chronic Assessment and plan: No signs of coronary artery compromise at this time. Qualifiers: Associated angina: without angina Coronary Disease-Associated Artery/Lesion type: [place] artery [place] vs. transplanted heart: [place] heart Qualified Code(s): I25.10 - Atherosclerotic heart disease of [place] coronary artery without angina pectoris (10) GERD (gastroesophageal reflux disease): Status: Chronic Assessment and plan: stable at this time. Continue omeprazole. continue to monitor symptoms. 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 follow up with water pollution control inspector as outpatient. (12) Hyperlipidemia: Status: Acute Assessment and plan: stable at this time. will hold PO statin agent due to potential for interaction with Azithromycin. Presentation not consistent with adverse reaction from statin. (13) Gout: Status: Chronic Assessment and plan: Patient wtih history of gouty attacks, but not currently taking gout medications. Will watch closely for signs of gouty flare due to dehydration and AASHISH which may precipitate gout flare. No complaints at this time of gouty arthritis or attack. Uric acid is checked and not elevated measurement at 7.1 today. (14) Hypertension: Status: Chronic Assessment and plan: continue close monitoring of blood pressure. hold lisinopril due to AASHISH at this time. Resume when AASHISH resolved. Blood pressure remained stable at this time off lisinopril Qualifiers: Hypertension type: primary hypertension Qualified Code(s): I10 - Essential (primary) hypertension (15) CKD (chronic kidney disease) stage 3, GFR 30-59 ml/min: Status: Acute Assessment and plan: Now with acute on chronic RF. Unclear of etiology of CKD Normal resting creatinine ~ 2.1 Qualifiers: Chronic kidney disease stage 3 subtype: unspecified whether 3a or 3b Qualified Code(s): N18.30 - Chronic kidney disease, stage 3 unspecified (16) History of MT (myocardial infarction): Status: Acute Assessment and plan: Cardiology consult requested. Cardiology may not be available for consultation. (17) HEART SURGERY: Assessment and plan: Distant history of heart surgery as 3 yo. not contributory to this hospitalization. Subjective Subjective Patient reports: no new complaints and feels better Interval history since last seen: February 17, 2024 Clinical course reviewed including notes, orders, labs, vitals, meds, imaging, rhythm strips are reviewed. Care is discussed with ICU staff on rounds. Patient states he feels better today since admission. He reports no dizziness when standing erect or sitting upright. No new rash. Overall feels better. Night sweats much account collector last PM than prior to admission. No chills. No headaches or nausea. Patient has no sensation of fever, but Temp ^ 38F this am. at bedside. 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 Advised and discussed labs with them. Crea ^ 6.2. Plts decreased to 66k. Serologies pending. Blood cultures NGTD. An opportunity to ask questions was made. A 14 point review of systems was performed and negative except as noted below and in the HPI. Feb 15 Admit Note: This is a pleasant 53-year-old gentleman with a past medical history significant for coronary artery disease status post stinting x 2, following with cardiology Dr Lazo on dual antiplatelet therapy who was in his usual state of health until approximately 2 weeks ago when he began to develop myalgias and migratory pains. 3 weeks ago he was in [place], [place] ([place] of [place]) where he rented some land to set up [place] cameras for hunting purposes. He was bitten by many bugs. He was there with a friend of his who became ill as well. They both had many bug bites that they characterized as chiggers but the patient does not recall seeing star ticks on his body. He was bit literally hundreds of times. His friend became ill with fevers chills myalgias and went to a local urgent care where he was treated with antibiotics and is doing relatively well. This patient developed high fevers to 103F measured at home with shaking chills and drenching night sweats and was recently seen in Urgent care on Feb 12. He was not prescribed medications and was discharged home. He persevered at home until this morning when experienced his second straight day of lightheadedness when standing erect. He felt faint and almost fainted. His brought him to the emergency department. In the ED, while he was being evaluated, an IV was being placed and the patient had a episode of severe bradycardia and chest compressions were performed. External defibrillator pads were placed. Troponins have been sent and are without elevation x 2. Since that time, the patient has been stable with monitored HR in the 70s. He states he normally has a heart rate in the 60s due to the metoprolol since his Non STEMI MT. He does not believe he took any extra doses of metoprolol recently. The patient has a rash on his right flank with at least #30 - 1 to 2 mm diameter faintly erythematous raised papules. None of them are pustular. There is no evidence of retained foreign insect material in these lesions at the time of my exam. The patient follows with Dr. Lazo of cardiology. He had stints x 2 placed and continues on aspirin and Plavix since that time. Patient has a history of chronic kidney disease states he has had small kidneys since he was young. He follows in [place] for his renal disease but has not been seen there in close to a year. He has a history of gout for which he is taking colchicine and allopurinol but he is on neither medication at this time. Patient lives at home with his and son. They have no pets. Everyone else is well at home. Only recent travel is to [facility] as noted above about 3 weeks ago. Patient does not have an advanced directive and desires full resuscitative efforts should any cardiac events occur. He received ceftriaxone 2 g IV in the ED and will receive IV azithromycin as well. Blood cultures, troponins and tick borne serologies and studies are obtained for laboratory analysis. Troponins are negative x 2. EKG results are personally reviewed by myself and consistant with a negative stress test in December of 2023 which revealed RBBB, seen on today's EKG with prolonged AL interval on Today's EKG. No second or third degree heart block has been noted. Exam Narrative Exam Narrative: Patient is alert and oriented x 3 and in no acute distress. seated at bedside. HEENT: Neck supple, Conjunctiva non-injected, sclera non-icteric, Pupils equal and reactive to light symmetrically, CHEST: Bilaterally symmetrical with inspiration and expiration. No use of accessory muscles of respiration. No nasal flaring. LUNGS: Clear to auscultation bilaterally, no rales, rhonchi or wheeze, no pleural friction rub, no post-tussive crackles COR: RRR without murmur, normal S1, S2, no rub or ileana. External cardiac defibrillator pads in place. Old, well healed midline sternotomy incision with no signs of disruption ABDOMEN: Soft, non tender diffusely, normally active bowel sounds diffusely, No hepatosplenomegaly, No abdominal bruit, no masses, no tenderness on deep abdominal palpation. G/U: deferred Rectal: deferred MUSCULOSKELETAL: Bilaterally symmetrical, no muscle belly tenderness or mass DERMIS: Skin warm and dry, no ulcers, Rash along R flank with some regression with devolving small 1-2 mm papules with faint erythema and erythematous base. EXTREMITIES: No cyanosis, clubbing or edema, feet with bilateral bunions, patient sees podiatry. No hand or wrist abnormalities. Moves all extremities normally without difficulty. NEUROLOGICAL: Cranial nerves intact II-XII without notable deficit, No peripheral neurosensory or motor deficits noted. LYMPH: No anterior or posterior cervical, no supraclavicular, No axillary, no epitrochlear or femoral lymphadenopathy. Objective Last Vital Signs Temp 38.0 C H 02/17/24 08:40 Pulse 68 02/17/24 08:27 Resp 18 02/17/24 08:27 BP 117/80 02/17/24 08:27 Pulse Ox 98 02/17/24 08:27 Laboratory Results - last 24 hr 02/16/24 02/16/24 02/16/24 09:42 10:07 11:08 WBC RBC Hgb Hct MCV MCH MCHC RDW Plt Count MPV Immature Gran % Neutrophils % Lymphocytes % Atypical Lymphs % Monocytes % Eosinophils % Basophils % Nucleated RBC % Absolute Neutrophils Absolute Lymphocytes Absolute Monocytes Absolute Eosinophils Absolute Basophils RBC Morphology Sodium Potassium Chloride Carbon Dioxide Anion Gap BUN Creatinine Est GFR (CKD-EPI 2020) Glucose Uric Acid Calcium Total Bilirubin AST ALT Alkaline Phosphatase Creatine Kinase Troponin I 45 40 Total Protein Albumin Urine Color Yellow Urine Clarity Sl Cloudy Urine pH 5.5 Ur Specific Cameron 1.010 Urine Protein 30 H Urine Ketones Negative Urine Blood Small H Urine Nitrite Negative Urine Bilirubin Negative Urine Urobilinogen 1.0 H Ur Leukocyte Esterase Negative Urine RBC 3-5 H Urine WBC 0-2 Ur Epithelial Cells Rare Urine Crystals Few Amorphous Urine Bacteria Rare Urine Casts 0-2 Hyaline Urine Mucus Negative Ur Culture Indicated? No Urine Glucose Negative COVID-19 Source SARS-CoV-2 (PCR) Influenza Type A (PCR) Influenza Type B (PCR) RSV (PCR) 02/16/24 02/17/24 12:26 05:46 WBC 2.31 L RBC 3.63 L Hgb 11.2 L D Hct 32.2 L MCV 89 MCH 30.9 MCHC 34.8 RDW 12.4 Plt Count 66 L MPV 10.7 Immature Gran % See Differential Neutrophils % 49.0 Lymphocytes % 38.0 Atypical Lymphs % 1 Monocytes % 10.0 Eosinophils % 2.0 Basophils % 0.0 Nucleated RBC % 0.0 Absolute Neutrophils 1.13 L Absolute Lymphocytes 0.90 L Absolute Monocytes 0.23 Absolute Eosinophils 0.05 Absolute Basophils 0.00 RBC Morphology Normal Sodium 133 L Potassium 3.8 Chloride 104 Carbon Dioxide 16.6 L Anion Gap 12.4 H BUN 60 H Creatinine 6.2 H* Est GFR (CKD-EPI 2020) 10.02 Glucose 109 H Uric Acid 7.1 Calcium 7.4 L Total Bilirubin 1.16 H AST 293 H ALT 212 H Alkaline Phosphatase 217 H Creatine Kinase 128 Troponin I Total Protein 5.3 L Albumin 2.4 L Urine Color Urine Clarity Urine pH Ur Specific Cameron Urine Protein Urine Ketones Urine Blood Urine Nitrite Urine Bilirubin Urine Urobilinogen Ur Leukocyte Esterase Urine RBC Urine WBC Ur Epithelial Cells Urine Crystals Urine Bacteria Urine Casts Urine Mucus Ur Culture Indicated? Urine Glucose COVID-19 Source Nasopharynx SARS-CoV-2 (PCR) Negative Influenza Type A (PCR) Negative Influenza Type B (PCR) Negative RSV (PCR) Negative Reviewed Pertinent PMH: Yes PAWSS Pt Consumed Any Amount of Alcohol Within the Last 30 days OR had positive ROSITA Upon Admission: No Have you Been Recently Intoxicated or Drunk Within the Last 30 days?: No Have you Ever Experienced Previous Episodes of Alcohol Withdrawal?: No Have you ever Experienced Withdrawal Seizures?: No Have you ever Experienced Delirium Tremens(DT)s?: No Have you ever undergone Alcohol Rehabilitation Treatment (i.e, inpt ot outpatient treatment programs)?: No Have you ever Experienced Blackouts?: No Have you ever Combined Alcohol with other Downers within the last 90 days?: No Have you ever Combined Alcohol with any other Substance of Abuse during the last 90 days?: No Positive Blood Alcohol level on Presentation? [PCS.BAL]: No Evidence of Increased Autonomic Activity (i.e. HR>120, tremor, sweating, agitation, nausea)?: No Result: 0 Time Spent with Patient Time Spent with Patient: 35-49 minutes Time was spent: preparing to see the patient(eg.review tests), obtaining and/or reviewing separately otained hiistory, ordering medications,tests, procedures, referring, communicating with other health care coordination manager, indepentently interpreting results, counseling the patient, care coordination and other (reviewing late labs, discussion with pharmacists)
[2024-02-17 10:32] LABS: Lyme Ab w Rflx to Lyme Confirm Negative (Negative)
[2024-02-17] MEDS: cefTRIAXone 2 GM/50 ML BAG IVPB (10:56)
--- NOTE | 2024-02-17 12:18 | PDOC.CMIN ---
Date of service: 02/17/24 Time of Service: 12:18 Care Management Initial Assmt Initial Assessment Reason for Hospitalization: tick-borne disease, AASHISH, thrombocytopenia Functional Status/Living Situation Patient Presentation: Robert presented to the ED yesterday after having a fever for 3-4 days and feeling light headed, to the point of almost passing out. He had been seen at [facility] on 02/12 for URI and rash. He had been in [place] setting up trail cameras for hunting and was bit by many bugs. His friend that was with him also had a fever and was given antibiotics and was feeling better. Today Robert was sitting up on the edge of the bed, eating a sandwich, when CM met with him. He was pleasant and easily engaged. Stated he is feeling better, but still tired and not much of an appetite. Town of Residence: [place] Resides with: Spouse (Josefa and son David) Significant Other/Family: Local Natural Supports: Josefa is his main support. Robert enjoys spending time with his son and enjoys hunting with friends. 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 Has land in [place], on which he hunts. Hunts locally as well. Medications Medication Management: No Issues/Barriers identified Advance Directives Advance Directives: Do you have an Advance Directive: N 05/15/16 13:37 AD On File at [facility]: N 05/15/16 13:37 Date Asked 01/01/24 01/01/24 09:51 AD Date Reviewed COLST On File at [facility] COLST Date Scanned Comment: not interested in AD at this time Code Status Resuscitation Status Full Code Insurance Coverage/Financial Issues Insurance: BC/BS Financial Issues: denies difficulty Care Team Visit Care Team Role Provider Type Jesús Kennedy NP Primary Care Provider NURSE PRACTITIONER Pedro Brito MD Emergency Provider [facility] STAFF PHYSICIAN Broderick Davis DO Admit Provider [facility] STAFF PHYSICIAN Attending Provider Discharge Potential Discharge Needs: Consult Consult Services Needed: Cardiology and PCP F/U Appt Anticipated Barriers to Discharge: None Identified Patient/Family Education Needs: Review discharge instructions, discuss Ask Me Three Transportation: Private vehicle Plan: Anticipate that Robert will be discharged home with no new services. He will f/u with his PCP and his principal quality engineer. He will transport in a private vehicle with his . PFSH All Active Problems (Updated 02/16/24 @ 14:53 by Broderick Davis DO) Tick-borne disease (Acute) AASHISH (acute kidney injury) (Acute) Thrombocytopenia (Chronic) Bradycardia (Acute) Anxiety (Chronic) Myalgia (Acute) Elevated liver enzymes (Acute) Bilateral leg cramps (Acute) Coronary artery disease (Chronic) GERD (gastroesophageal reflux disease) (Chronic) Foot deformity (Acute) Very large bilateral bunions with associated hammertoes adjacent, seen by podiatry Hallux valgus (acquired), right foot (Acute) Hammertoe of right foot (Acute) Diastasis recti (Acute 05/01/16) Hyperlipidemia (Acute 05/01/16) Gout (Chronic) 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 ASD ?VSD-pt. states he is unsure ofwhich defect it was Family History Mother Essential hypertension Father Myocardial infarction Brother Heart disease Myocardial infarction Maternal Cousin Factor 5 Leiden mutation, heterozygous Maternal Aunt Factor 5 Leiden mutation, heterozygous Grandmother Diabetes Heart disease Family history Heart disease STRONG HX OF HEART DISEASE Social History Smoking/Tobacco Use Status: Former Tobacco Use tobacco type: cigarettes Quit Date: 05/19/98 Tobacco: How many years used: 10 Second Hand Exposure: Yes Smoking risk assessment performed?: Yes Alcohol Intake: current Alcohol Intake frequency: a few times a week Alcohol type: beer Drug use: Never Substance use type: does not use Caregiver/Support person: No Household members: spouse Housing: house Communication Needs: None Do you need help understanding health information?: Rarely Pets and animals: No Sexually active: Yes Do you think of yourself as: straight/heterosexual Current gender identity: male What is your relationship status?: How often do you talk on the phone with friends or family?: decline to answer How often do you get together with friends or relatives?: decline to answer How often do you attend orthodoxy or yazidi services?: decline to answer Do you belong to any clubs or organized social groups?: decline to answer Panel score (0-1 are the most socially isolated patients): 1 Special yvette needs: No Seatbelt use: always Drive intox or ride w/intox bookmobile driver: No Do you feel safe at home: Yes Do you feel safe in your relationship?: Yes Readmission Within the Past 30 Days Yes or No: No SDOH(Care Management) Screening Will the Patient Participate in the Screening?: Yes Do you worry about having a steady place to live?: no In the past 12 months, have you had to go without electric, gas, oil or water in your home?: no Have you or anyone in your house had to go without enough food to eat?: no Has lack of transportation kept you from medical appointments or from doing things needed for daily living?: no Has anyone in your support network made you feel unsafe for any reason?: no
[2024-02-17] MEDS: AZITHROMYCIN 500 MG in Normal Saline 250 ML 250 MG IVPB (14:22)
--- NOTE | 2024-02-17 14:27 | CHAPLAIN ---
Robert was resting in bed when I visited. I explained my role and offered support. His was in earlier to visit, and will be returning. Robert seems comfortable being here.
[2024-02-17 16:11] LABS: HCT 34.5 % (40.0-50.0); HGB 11.8 g/dL (13.5-17.5); MCH 30.8 pg (27.0-33.0); MCHC 34.2 % (32.0-36.0); MCV 90 fL (80-95); MPV 10.6 fL (8.0-11.0); RBC 3.83 10^6/uL (4.36-5.78); RDW 12.6 % (11.8-14.1); RDW-SD 41.7 fL; WBC 3.01 10^3/uL (4.4-10.8)
[2024-02-17 16:21] LABS: ALT 267 U/L (16-63); AST 344 U/L (15-37); Albumin 2.5 g/dL (3.4-5.0); Alkaline Phosphatase 253 U/L (46-116); Anion Gap 11.9 mmol/L (3-11); BUN 60 mg/dL (7-18); CO2 19.1 mmol/L (21.0-32.0); Calcium 7.7 mg/dL (8.5-10.1); Chloride 104 mmol/L (98-107); Estimated GFR 10.42 (mL/min/1.73m2); Glucose 108 mg/dL (74-106); Potassium 3.8 mmol/L (3.5-5.1); Sodium 135 mmol/L (136-145); Total Protein 5.9 g/dL (6.4-8.2)
[2024-02-17 16:27] LABS: Platelet Count 62 10^3/uL (130-400)
[2024-02-18] VITALS (35 sets, daily range): BP systolic 120–160; BP diastolic 65–81; PULSE 59–102; RESP 14–36; TEMP 36.5–39.1; O2SAT 96–98
[2024-02-18] MEDS: Acetaminophen 325 MG TAB PO ×3 (03:44→23:06)
[2024-02-18] MEDS: Normal Saline 1,000 ML 125 ML IV ×2 (03:46→13:36)
--- NOTE | 2024-02-18 03:56 | NUR.NOTE ---
Nursing Note: Pt had a temp=39.1, Dr Story aware, ordered ibuprofen, aware of possible platelet aggregation with plavix, one dose still ordered.
[2024-02-18] MEDS: Ibuprofen 600 MG TAB PO (04:04)
[2024-02-18 06:11] LABS: HCT 30.4 % (40.0-50.0); HGB 10.4 g/dL (13.5-17.5); MCH 30.7 pg (27.0-33.0); MCHC 34.2 % (32.0-36.0); MCV 90 fL (80-95); MPV 9.7 fL (8.0-11.0); RBC 3.39 10^6/uL (4.36-5.78); RDW 12.8 % (11.8-14.1); RDW-SD 42.2 fL; WBC 5.07 10^3/uL (4.4-10.8)
[2024-02-18 06:21] LABS: Anion Gap 12.8 mmol/L (3-11); BUN 50 mg/dL (7-18); CO2 16.2 mmol/L (21.0-32.0); Calcium 7.7 mg/dL (8.5-10.1); Chloride 109 mmol/L (98-107); Estimated GFR 11.82 (mL/min/1.73m2); Glucose 103 mg/dL (74-106); Potassium 3.8 mmol/L (3.5-5.1); Sodium 138 mmol/L (136-145)
[2024-02-18 06:32] LABS: CREATININE 5.4 mg/dL (0.70-1.30)
--- NOTE | 2024-02-18 06:34 | NUR.NOTE ---
Nursing Note: Pt's Creat=5.4, trending down from 6.2 & 6.0 yesterday.
[2024-02-18 06:53] LABS: Absolute Lymphocyte Count 1.52 10^3/uL (1.2-3.4); Absolute Monocyte Count 0.61 10^3/uL (0.1-0.8); Absolute Neutrophil Count 2.89 10^3/uL (1.2-6.7); Atypical Lymphocytes % 7 %; Bands % 2 %; Diff Comment Manual Differential; Myelocytes % 1; Platelet Count 88 10^3/uL (130-400); RBC Morphology Normal
[2024-02-18] MEDS: Normal Saline Flush 10 ML SYR IVP ×2 (07:32→19:01)
[2024-02-18] MEDS: Omeprazole 20 MG CAPCR PO (07:33)
[2024-02-18] MEDS: Allopurinol 100 MG TAB PO (07:33)
[2024-02-18] MEDS: Calcitriol 0.25 MCG CAP PO (07:33)
[2024-02-18] MEDS: Clopidogrel 75 MG TAB PO (07:33)
[2024-02-18] MEDS: Aspirin E.C. 81 MG TABEC PO (07:33)
--- NOTE | 2024-02-18 07:41 | PGE_ITS ---
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 Therapies have begun for Lyme and Anaplasma while lab testing (which may be negative due to the acuity of the symptoms). Lyme may be contributing to the bradycardia and the fevers/neutropenia/thrombocytopenia are highly supportive of the diagnosis of anaplasmosis. Continue ceftriaxone and azithromycin at this time. Patient appears to have significantly clinical improvement however his laboratories are slow to reflect his clinical improvement. Consider changing to oral medications tomorrow and discharge home with plans for outpatient laboratory work and follow-up if his a.m. labs are good. (2) AASHISH (acute kidney injury): Start date: 02/16/24 Status: Acute Assessment and plan: This is likely due to dehyration. There is demonstrated improvement in the patient's renal function. Will decrease IV fluids to 75 cc an hour plus liberal p.o. intake. Follow creatinine daily. 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 Follow daily platelet counts which are improved today. Continue plavix and ASA for CAD/Stints pending cardiology review. No active signs of bleeding at this time. Patient has rejected PCD's and RALPH hose. I discussed this with him and he still declines them. (4) Bradycardia: Start date: 02/16/24 Status: Acute Assessment and plan: Possibly vagal in origin, possibly multifactoral including beta blockade, Acute Lyme disease, increased vagal tone. DC telemonitoring No further signs of heart rate or postural hypotension at this time. (5) Anxiety: Start date: 02/16/24 Status: Chronic Assessment and plan: appears stable at this time. Continue alprazolam as needed for anxiety as a short term treatment. No further signs of anxiety. remains pleasant on a stabilizing force at his bedside. (6) Elevated liver enzymes: Start date: 02/16/24 Status: Acute Assessment and plan: Likely secondary to Anaplasmosis. Follow levels daily while hospitalized and receiving therapy for acute anaplasmosis. No signs of hepatic impairment at this time. Bilirubin is elevated as well. This is consistent with anaplasmosis. Will repeat liver enzymes this afternoon at 1600. (7) Myalgia: Start date: 02/02/24 Status: Acute Assessment and plan: Acute issue, likley due to tick borne illness Lyme/Anaplasmosis. Myalgias have improved today. (8) Bilateral leg cramps: Start date: 02/09/24 Status: Acute Assessment and plan: stable at this time. (9) Coronary artery disease: Status: Chronic Assessment and plan: No signs of coronary artery compromise at this time. Qualifiers: Associated angina: without angina Coronary Disease-Associated Artery/Lesion type: [place] artery [place] vs. transplanted heart: [place] heart Qualified Code(s): I25.10 - Atherosclerotic heart disease of [place] coronary artery without angina pectoris (10) GERD (gastroesophageal reflux disease): Status: Chronic Assessment and plan: stable at this time. Continue omeprazole. continue to monitor symptoms. 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 follow up with director of automation as outpatient. (12) Hyperlipidemia: Status: Acute Assessment and plan: stable at this time. will hold PO statin agent due to potential for interaction with Azithromycin. Presentation not consistent with adverse reaction from statin. (13) Gout: Status: Chronic Assessment and plan: Patient wtih history of gouty attacks, but not currently taking gout medications. Will watch closely for signs of gouty flare due to dehydration and AASHISH which may precipitate gout flare. No complaints at this time of gouty arthritis or attack. Uric acid is checked and not elevated measurement at 7.1 No evidence of acute gout flare.. (14) Hypertension: Status: Chronic Assessment and plan: continue close monitoring of blood pressure. hold lisinopril due to AASHISH at this time. Resume when AASHISH resolved. Blood pressure remained stable at this time off lisinopril Qualifiers: Hypertension type: primary hypertension Qualified Code(s): I10 - Essential (primary) hypertension (15) CKD (chronic kidney disease) stage 3, GFR 30-59 ml/min: Status: Acute Assessment and plan: Now with acute on chronic RF. Unclear of etiology of CKD Normal resting creatinine ~ 2.1 Qualifiers: Chronic kidney disease stage 3 subtype: unspecified whether 3a or 3b Qualified Code(s): N18.30 - Chronic kidney disease, stage 3 unspecified (16) History of ME (myocardial infarction): Status: Acute Assessment and plan: Cardiology consult requested. Cardiology not available for consultation. (17) HEART SURGERY: Assessment and plan: Distant history of heart surgery as 3 yo. not contributory to this hospitalization. Subjective Subjective Patient reports: no new complaints and feels better Interval history since last seen: February 18, 2024 Clinical course reviewed including notes, orders, labs, vitals, meds, imaging, rhythm strips are reviewed. Care is discussed with ICU staff on rounds. Patient reports no dizziness when standing erect or sitting upright. No new rash. Overall feels better. Fever continues with elevated temp last PM to 39.1. Night sweats much web press roll tender last PM than prior to admission. No chills. No headaches or nausea. at bedside. We discussed tick avoidance measures and with the use of soaking close and permethrin 0.05% which will preserve and high-tech properties for more than 90 days despite repeated washings. Patient's is provided nursing with the name of the patient's sports development officer in [place]. Advised and discussed labs with them. Crea decreased to 5.4. Plts increased to 88k. WCC normalized to 5.0. Serologies including babesia remain pending. Blood cultures NGTD. An opportunity to ask questions was made. 4 PM labs are reviewed. That consists of a CMP. Sodium 137, potassium 3.8, creatinine 5.0, calcium 7.8, AST decreased to 400, ALT minimally decreased at 376, alkaline phosphatase 278 albumin is 2.3 A 14 point review of systems was performed and negative except as noted below a nd in the HPI. February 17, 2024 Clinical course reviewed including notes, orders, labs, vitals, meds, imaging, rhythm strips are reviewed. Care is discussed with ICU staff on rounds. Patient states he feels better today since admission. He reports no dizziness when standing erect or sitting upright. No new rash. Overall feels better. Night sweats much web press roll tender last PM than prior to admission. No chills. No headaches or nausea. Patient has no sensation of fever, but Temp ^ 38F this am. at bedside. She is looking to find name of his sports development officer in [place]. Advised and discussed labs with them. Crea ^ 6.2. Plts decreased to 66k. Serologies pending. Blood cultures NGTD. An opportunity to ask questions was made. A 14 point review of systems was performed and negative except as noted below and in the HPI. Feb 15 Admit Note: This is a pleasant 53-year-old gentleman with a past medical history significant for coronary artery disease status post stinting x 2, following with cardiology Dr Lazo on dual antiplatelet therapy who was in his usual state of health until approximately 2 weeks ago when he began to develop myalgias and migratory pains. 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 He was bitten by many bugs. He was there with a friend of his who became ill as well. They both had many bug bites that they characterized as chiggers but the patient does not recall seeing star ticks on his body. He was bit literally hundreds of times. His friend became ill with fevers chills myalgias and went to a local urgent care where he was treated with antibiotics and is doing relatively well. This patient developed high fevers to 103F measured at home with shaking chills and drenching night sweats and was recently seen in Urgent care on Feb 12. He was not prescribed medications and was discharged home. He persevered at home until this morning when experienced his second straight day of lightheadedness when standing erect. He felt faint and almost fainted. His brought him to the emergency department. In the ED, while he was being evaluated, an IV was being placed and the patient had a episode of severe bradycardia and chest compressions were performed. External defibrillator pads were placed. Troponins have been sent and are without elevation x 2. Since that time, the patient has been stable with monitored HR in the 70s. He states he normally has a heart rate in the 60s due to the metoprolol since his Non STEMI ME. He does not believe he took any extra doses of metoprolol recently. The patient has a rash on his right flank with at least #30 - 1 to 2 mm diameter faintly erythematous raised papules. None of them are pustular. There is no evidence of retained foreign insect material in these lesions at the time of my exam. The patient follows with Dr. Lazo of cardiology. He had stints x 2 placed and continues on aspirin and Plavix since that time. Patient has a history of chronic kidney disease states he has had small kidneys since he was young. He follows in [place] for his renal disease but has not been seen there in close to a year. He has a history of gout for which he is taking colchicine and allopurinol but he is on neither medication at this time. Patient lives at home with his and son. They have no pets. Everyone else is well at home. Only recent travel is to [facility] as noted above about 3 weeks ago. Patient does not have an advanced directive and desires full resuscitative efforts should any cardiac events occur. He received ceftriaxone 2 g IV in the ED and will receive IV azithromycin as well. Blood cultures, troponins and tick borne serologies and studies are obtained for laboratory analysis. Troponins are negative x 2. EKG results are personally reviewed by myself and consistant with a negative stress test in December of 2023 which revealed RBBB, seen on today's EKG with prolonged VT interval on Today's EKG. No second or third degree heart block has been noted. Exam Narrative Exam Narrative: Patient is alert and oriented x 3 and in no acute distress. Exam essentially unchanged HEENT: Neck supple, Conjunctiva non-injected, sclera non-icteric, Pupils equal and reactive to light symmetrically, CHEST: Bilaterally symmetrical with inspiration and expiration. No use of accessory muscles of respiration. No nasal flaring. LUNGS: Clear to auscultation bilaterally, no rales, rhonchi or wheeze, no pleural friction rub, no post-tussive crackles COR: RRR without murmur, normal S1, S2, no rub or ileana. External cardiac defibrillator pads in place. Old, well healed midline sternotomy incision with no signs of disruption ABDOMEN: Soft, non tender diffusely, normally active bowel sounds diffusely, No hepatosplenomegaly, No abdominal bruit, no masses, no tenderness on deep abdominal palpation. G/U: deferred Rectal: deferred MUSCULOSKELETAL: Bilaterally symmetrical, no muscle belly tenderness or mass DERMIS: Skin warm and dry, no ulcers, Rash along R flank with some regression with devolving small 1-2 mm papules with faint erythema and erythematous base. EXTREMITIES: No cyanosis, clubbing or edema, feet with bilateral bunions, patient sees podiatry. No hand or wrist abnormalities. Moves all extremities normally without difficulty. NEUROLOGICAL: Cranial nerves intact II-XII without notable deficit, No peripheral neurosensory or motor deficits noted. LYMPH: No anterior or posterior cervical, no supraclavicular, No axillary, no epitrochlear or femoral lymphadenopathy. Objective Last Vital Signs Temp 36.7 C 02/18/24 06:57 Pulse 71 02/18/24 06:57 Resp 14 02/18/24 07:00 BP 120/65 02/18/24 06:57 Pulse Ox 96 02/18/24 06:57 Laboratory Results - last 24 hr 02/16/24 02/17/24 02/17/24 07:50 05:46 16:00 WBC 3.01 L RBC 3.83 L Hgb 11.8 L Hct 34.5 L MCV 90 MCH 30.8 MCHC 34.2 RDW 12.6 Plt Count 62 L MPV 10.6 Immature Gran % Neutrophils % Band Neutrophils % Lymphocytes % Atypical Lymphs % Monocytes % Eosinophils % Basophils % Myelocytes % Nucleated RBC % Absolute Neutrophils Absolute Lymphocytes Absolute Monocytes Absolute Eosinophils Absolute Basophils RBC Morphology Sodium 135 L Potassium 3.8 Chloride 104 Carbon Dioxide 19.1 L Anion Gap 11.9 H BUN 60 H Creatinine 6.0 H* Est GFR (CKD-EPI 2020) 10.42 Glucose 108 H Uric Acid 7.1 Calcium 7.7 L Total Bilirubin 0.90 AST 344 H ALT 267 H Alkaline Phosphatase 253 H Creatine Kinase 128 Total Protein 5.9 L Albumin 2.5 L Lyme Disease Antibody Negative 02/18/24 05:46 WBC 5.07 RBC 3.39 L Hgb 10.4 L Hct 30.4 L MCV 90 MCH 30.7 MCHC 34.2 RDW 12.8 Plt Count 88 L MPV 9.7 Immature Gran % 0.0 Neutrophils % 55.0 Band Neutrophils % 2 Lymphocytes % 23.0 Atypical Lymphs % 7 Monocytes % 12.0 Eosinophils % 0.0 Basophils % 0.0 Myelocytes % 1 Nucleated RBC % 0.0 Absolute Neutrophils 2.89 Absolute Lymphocytes 1.52 Absolute Monocytes 0.61 Absolute Eosinophils 0.00 Absolute Basophils 0.00 RBC Morphology Normal Sodium 138 Potassium 3.8 Chloride 109 H Carbon Dioxide 16.2 L Anion Gap 12.8 H BUN 50 H Creatinine 5.4 H* Est GFR (CKD-EPI 2020) 11.82 Glucose 103 Uric Acid Calcium 7.7 L Total Bilirubin AST ALT Alkaline Phosphatase Creatine Kinase Total Protein Albumin Lyme Disease Antibody PAWSS Pt Consumed Any Amount of Alcohol Within the Last 30 days OR had positive ROSITA Upon Admission: No Have you Been Recently Intoxicated or Drunk Within the Last 30 days?: No Have you Ever Experienced Previous Episodes of Alcohol Withdrawal?: No Have you ever Experienced Withdrawal Seizures?: No Have you ever Experienced Delirium Tremens(DT)s?: No Have you ever undergone Alcohol Rehabilitation Treatment (i.e, inpt ot outpatient treatment programs)?: No Have you ever Experienced Blackouts?: No Have you ever Combined Alcohol with other Downers within the last 90 days?: No Have you ever Combined Alcohol with any other Substance of Abuse during the last 90 days?: No Positive Blood Alcohol level on Presentation? [PCS.BAL]: No Evidence of Increased Autonomic Activity (i.e. HR>120, tremor, sweating, agitation, nausea)?: No Result: 0 Time Spent with Patient Time Spent with Patient: 35-49 minutes Time was spent: preparing to see the patient(eg.review tests), obtaining and/or reviewing separately otained hiistory, ordering medications,tests, procedures, referring, communicating with other health customer care team coach, indepentently interpreting results, counseling the patient and care coordination
[2024-02-18 09:38] LABS: ALT 381 U/L (16-63); AST 510 U/L (15-37); Albumin 2.3 g/dL (3.4-5.0); Alkaline Phosphatase 253 U/L (46-116); Bilirubin, Direct 0.5 mg/dL (0.0-0.2); Bilirubin, Total 0.71 mg/dL (0.2-1.0); Total Protein 5.3 g/dL (6.4-8.2)
--- NOTE | 2024-02-18 10:53 | PHA.REVIEW2 ---
Pharmacy Admission Review Admission Clinical Review Admission Pharmacy Review: Tick-borne disease (Acute) AASHISH (acute kidney injury) (Acute) Bradycardia (Acute) Myalgia (Acute) Elevated liver enzymes (Acute) Bilateral leg cramps (Acute) Hyperlipidemia (Acute 05/01/16) CKD (chronic kidney disease) stage 3, GFR 30-59 ml/min (Acute) History of NE (myocardial infarction) (Acute) No Known Allergies Allergy (Verified 02/13/24 13:41) Resuscitation Status Full Code Height 5 ft 10 in Weight 98.3 kg Pharmacy Admission Review Renal Dosing Renal Dosing: BUN 50 mg/dL (7-18) H 02/18/24 05:46 Creatinine 5.4 mg/dL (0.70-1.30) H* 02/18/24 05:46 Medications needing adjustments: Reviewed (Crcl 18.3 mL/min, BUN decreased from 60 and SCr decreased from 5.4) List of meds needing interventions: Current medications are okay. Patient has CKD stage 3 Anticoagulation Anticoagulation: Hgb 10.4 g/dL (13.5-17.5) L 02/18/24 05:46 Hct 30.4 % (40.0-50.0) L 02/18/24 05:46 Plt Count 88 10^3/uL (130-400) L 02/18/24 05:46 Creatinine 5.4 mg/dL (0.70-1.30) H* 02/18/24 05:46 DVT Prophylaxis: Reviewed (TEDs and SCDs, Hgb decreased from 11.8, PLT count increased from 62) Medications: Aspirin (and clopidogrel) Relevant Labs Relevant Labs: Sodium 138 mmol/L (136-145) 02/18/24 05:46 Potassium 3.8 mmol/L (3.5-5.1) 02/18/24 05:46 Chloride 109 mmol/L (98-107) H 02/18/24 05:46 Magnesium 1.9 mg/dL (1.8-2.4) 02/16/24 07:50 Electrolytes, C-Reactive P, ESR: Reviewed (ALT/AST increased from 344/267 to 510/381, total bilirubin WNL and alkaline phosphatase 253) Cardiac Review Cardiac Review: Troponin I 40 ng/L (<or=76) 02/16/24 11:08 BP, HR, EF%: Reviewed (BP and HR WNL) QTc Review QTc: Reviewed (405 from 02/16/24) IV to PO Switch IV Medications: Reviewed (azithromycin and ceftriaxone) Home Meds Home Med List reviewed: Intervened Relevent Home Meds Not ordered & why?: atorvastatin (on hold per H+P), colchicine (PRN for gout attack), lisinopril (on hold per H+P due to AASHISH), metoprolol (on hold - confirmed with provider during morning meeting due to bradycardia) Current Meds Current Medication Order Review: Intervened Comments: Reached out to provider regarding drug interaction between omeprazole and clopidogrel. Recommended switching to pantoprazole, waiting to hear back. Pharmacy Antibiotic Review Relevant Labs: WBC 5.07 10^3/uL (4.4-10.8) 02/18/24 05:46 Procalcitonin 2.9 ng/mL 02/16/24 07:50 Temperature 36.7 C Temperature 38.1 C Temperature 37.1 C Temperature 36.7 C Temperature 37.5 C Temperature 39.1 C Temperature 39.1 C Microbiology 02/16/24 08:38 Blood Culture - Preliminary Blood NO GROWTH 48 HOURS 02/16/24 08:50 Blood Culture - Preliminary Blood NO GROWTH 48 HOURS Pharmacy Antibiotic Activity: C/S review and Reviewed, no change Comments: Patient is on day 2 of azithromycin and day 3 of ceftriaxone. Pharmacist yesterday asked provider why these were being used over doxycycline for anaplasmosis/possible tick born illness. Per provider azithromycin is drug of choice for anaplasmosis due to higher intracellular concentrations. WBC increased from 3.01, cultures showing no growth and patient did have elevated temperature today at 1139 of 38.1 C.
[2024-02-18] MEDS: cefTRIAXone 2 GM/50 ML BAG IVPB (10:57)
--- NOTE | 2024-02-18 11:50 | PDOC.CMPRO ---
Date of service: 02/18/24 Time of Service: 11:02 Care Management Progress Note Progress Note Text Progress Note Text: Robert was sitting up in the bed when CM met with him this morning. He looked well, was pleasant and easily engaged. He stated that he is gaining. He's not feeling great yet, but better. He still has a poor appetite, but does feel he is making progress. He is hopeful that he can be discharged home tomorrow. Discharge Potential Discharge Needs: PCP F/U Appt and Other (cardiology follow up.) Anticipated Barriers to Discharge: None Identified Patient/Family Education Needs: Review discharge instructions, discuss Ask Me Three Transportation: Private vehicle Plan: Anticipate that Robert will be discharged home with no new services. He will f/u with his PCP and his watch train inspector. He will transport in a private vehicle with his . SDOH(Care Management) Screening Will the Patient Participate in the Screening?: Yes Do you worry about having a steady place to live?: no In the past 12 months, have you had to go without electric, gas, oil or water in your home?: no Have you or anyone in your house had to go without enough food to eat?: no Has lack of transportation kept you from medical appointments or from doing things needed for daily living?: no Has anyone in your support network made you feel unsafe for any reason?: no
[2024-02-18] MEDS: AZITHROMYCIN 500 MG in Normal Saline 250 ML 250 MG IVPB (13:37)
[2024-02-18 16:21] LABS: ALT 376 U/L (16-63); AST 400 U/L (15-37); Albumin 2.3 g/dL (3.4-5.0); Alkaline Phosphatase 278 U/L (46-116); Anion Gap 11.7 mmol/L (3-11); BUN 56 mg/dL (7-18); Bilirubin, Total 0.52 mg/dL (0.2-1.0); CO2 16.3 mmol/L (21.0-32.0); Calcium 7.8 mg/dL (8.5-10.1); Chloride 109 mmol/L (98-107); Estimated GFR 12.96 (mL/min/1.73m2); Glucose 121 mg/dL (74-106); Potassium 3.8 mmol/L (3.5-5.1); Sodium 137 mmol/L (136-145); Total Protein 5.7 g/dL (6.4-8.2)
--- NOTE | 2024-02-18 20:12 | W.PC.ACHO ---
Registration Status: Primary Language: Preferred Language: ED Information & Data Chief Complaint Fever 02/16/24 08:12 Triage Note had fever since 02/16/24 07:33 with no other symptoms, woke up this morning light headed, dizzy and disorientated Medical / Surgical History (Last Reviewed 02/16/24 @ 14:25 by Broderick Davis DO) Elevated blood pressure reading (Last Reviewed 02/16/24 @ 14:25 by Broderick Davis DO) HEART SURGERY Most Recent Vital Signs Temperature 36.5 C 02/18/24 19:12 Temperature Source Tympanic 02/18/24 19:12 Pulse 79 02/18/24 19:12 Pulse 83 02/18/24 18:00 Respiratory Rate 20 02/18/24 19:12 Respiratory Effort Normal 02/16/24 13:49 Respiratory Depth Normal 02/16/24 13:49 Respiratory Pattern Normal 02/16/24 13:49 Blood Pressure 160/80 H 02/18/24 19:12 Blood Pressure Mean 92 02/18/24 16:02 Blood Pressure Position Supine 02/16/24 13:49 Pulse Oximetry 98 02/18/24 19:12 Oxygen Delivery Method Room Air 02/18/24 19:12 Oxygen Flow Rate 0 02/18/24 19:12 Fraction of Inspired Oxygen (FIO2) 96 02/16/24 20:01 Pain Level 1 02/18/24 19:12 Allergies No Known Allergies Allergy (Verified 02/13/24 13:41) Precautions Isolation Standard precaution 02/16/24 07:55 Active Medications Generic Name Dose Route Start Last Admin Trade Name Freq PRN Reason Stop Dose Admin Acetaminophen 0 mg 02/16/24 11:18 02/18/24 13:36 Acetaminophen 325 Mg Tab PO 650 mg Q4H PRN PRN Administration Allopurinol 100 mg 02/17/24 08:30 02/18/24 07:33 Allopurinol 100 Mg Tab PO 100 mg DAILY ADEEL Administration Aspirin 81 mg 02/17/24 08:30 02/18/24 07:33 Aspirin E.C. 81 Mg Tabec PO 81 mg DAILY ADEEL Administration Calcitriol 0.25 mcg 02/17/24 08:30 02/18/24 07:33 Calcitriol 0.25 Mcg Cap PO 0.25 mcg DAILY ADEEL Administration Clopidogrel Bisulfate 75 mg 02/17/24 08:30 02/18/24 07:33 Clopidogrel 75 Mg Tab PO 75 mg DAILY ADEEL Administration Ceftriaxone Sodium/Dextrose 2 gm in 50 mls @ 100 mls/hr 02/17/24 10:00 02/18/24 11:27 Rocephin IVPB Infused Q24H ADEEL Infusion Azithromycin 500 mg/ Sodium 250 mls @ 250 mls/hr 02/16/24 14:00 02/18/24 14:55 Chloride IVPB Infused Q24H ADEEL Infusion Sodium Chloride 1,000 mls @ 75 mls/hr 02/16/24 17:00 02/18/24 18:40 Saline 1000ml Bag IV 75 mls/hr INFUSION ADEEL Infusion Omeprazole 20 mg 02/18/24 07:30 02/18/24 07:33 Omeprazole 20 Mg Capcr PO 20 mg DAILY@0730 ADEEL Administration Sodium Chloride 0 ml 02/16/24 07:41 02/16/24 09:37 Normal Saline Flush 10 Ml Syr IVP 20 ml PRN PRN Administration Sodium Chloride 0 ml 02/16/24 08:30 02/18/24 19:01 Normal Saline Flush 10 Ml Syr IVP 10 ml BID ADEEL Administration IV IV Catheter Type [Left Saline Lock Antecubital] IV Catheter Type [Right Peripheral IV Antecubital] IV Catheter Gauge [Left 20 Antecubital] IV Catheter Gauge [Right 18 Antecubital] Diagnostics 02/18/24 02/18/24 Range/Units 16:00 05:46 WBC 5.07 (4.4-10.8) 10^3/uL RBC 3.39 L (4.36-5.78) 10^6/uL Hgb 10.4 L (13.5-17.5) g/dL Hct 30.4 L (40.0-50.0) % MCV 90 (80-95) fL MCH 30.7 (27.0-33.0) pg MCHC 34.2 (32.0-36.0) % RDW 12.8 (11.8-14.1) % Plt Count 88 L (130-400) 10^3/uL MPV 9.7 (8.0-11.0) fL Immature Gran % 0.0 % Neutrophils % 55.0 % Band Neutrophils % 2 % Lymphocytes % 23.0 % Atypical Lymphs % 7 % Monocytes % 12.0 % Eosinophils % 0.0 % Basophils % 0.0 % Myelocytes % 1 Nucleated RBC % 0.0 (0.0-0.3) % Absolute Neutrophils 2.89 (1.2-6.7) 10^3/uL Absolute Lymphocytes 1.52 (1.2-3.4) 10^3/uL Absolute Monocytes 0.61 (0.1-0.8) 10^3/uL Absolute Eosinophils 0.00 (0.0-0.7) 10^3/uL Absolute Basophils 0.00 (0.0-0.2) 10^3/uL RBC Morphology Normal Sodium 137 138 (136-145) mmol/L Potassium 3.8 3.8 (3.5-5.1) mmol/L Chloride 109 H 109 H (98-107) mmol/L Carbon Dioxide 16.3 L 16.2 L (21.0-32.0) mmol/L Anion Gap 11.7 H 12.8 H (3-11) mmol/L BUN 56 H 50 H (7-18) mg/dL Creatinine 5.0 H* 5.4 H* (0.70-1.30) mg/dL Est GFR (CKD-EPI 2020) 12.96 11.82 (mL/min/1.73m2) Glucose 121 H 103 (74-106) mg/dL Calcium 7.8 L 7.7 L (8.5-10.1) mg/dL Total Bilirubin 0.52 0.71 (0.2-1.0) mg/dL Conjugated Bilirubin 0.5 H (0.0-0.2) mg/dL AST 400 H 510 H (15-37) U/L ALT 376 H 381 H (16-63) U/L Alkaline Phosphatase 278 H 253 H (46-116) U/L Total Protein 5.7 L 5.3 L (6.4-8.2) g/dL Albumin 2.3 L 2.3 L (3.4-5.0) g/dL 02/16/24 08:38 Blood Culture - Preliminary Blood NO GROWTH 48 HOURS 02/16/24 08:50 Blood Culture - Preliminary Blood NO GROWTH 48 HOURS Intake and Output - 24 Hour Total 02/16/24 07:24 thru 02/18/24 18:40 Intake Total 70295.833 Output Total 6700 Balance 4800.833 Weight 98.3 kg Intake: IV 8305.833 Oral 3195 Output: Urine 6700 Other: Urine Color Yellow Urine Appearance Clear Urine Odor Normal Stool Size Moderate Stool Characteristics Liquid Voiding Methods Urinal Falls Risk Assessment History of Falls No History 02/16/24 13:49 Contributing Factors No Factors 02/16/24 13:49 Ambulatory Aids Independent 02/16/24 13:49 Tubes/Lines W/no contributing factors 02/16/24 13:49 Gait Evaluation No gait disturbance 02/16/24 13:49 Fall Total Score 10 02/16/24 13:49 Level of Risk Standard/Low Risk 02/16/24 13:49 Problems (Last Reviewed 02/16/24 @ 14:25 by Broderick Davis DO) Tick-borne disease (Acute) AASHISH (acute kidney injury) (Acute) Thrombocytopenia (Chronic) Bradycardia (Acute) Anxiety (Chronic) Myalgia (Acute) Elevated liver enzymes (Acute) Bilateral leg cramps (Acute) Coronary artery disease (Chronic) GERD (gastroesophageal reflux disease) (Chronic) Foot deformity (Chronic) Hyperlipidemia (Acute 05/01/16) Gout (Chronic) Hypertension (Chronic) CKD (chronic kidney disease) stage 3, GFR 30-59 ml/min (Acute) History of OK (myocardial infarction) (Acute) Notes 02/18/24 06:34 Nursing Notes by Norman Tse Nursing Note: Pt's Creat=5.4, trending down from 6.2 & 6.0 yesterday. Initialized on 02/18/24 06:34 - END OF NOTE 02/18/24 03:56 Nursing Notes by Norman Tse Nursing Note: Pt had a temp=39.1, Dr Story aware, ordered ibuprofen, aware of possible platelet aggregation with plavix, one dose still ordered. Initialized on 02/18/24 03:56 - END OF NOTE 02/17/24 06:37 Nursing Notes by Norman Tse Nursing Note: Pt's creatinine=6.2, up from 5.8 day prior, Dr Wills made aware, no orders given. Initialized on 02/17/24 06:37 - END OF NOTE 02/16/24 07:59 Nursing Notes by Lizeth Ruelas Nursing Note: patient had episode of unresponsiveness, whole body shaking and a pause in his heart rate for approx 4 seconds witnessed by provider and x2 nurses, pads placed on chest, patient woke. patient is current AOx4 with VS WNL at this time Initialized on 02/16/24 07:59 - END OF NOTE v v v v v v v v v Sending and/or Receiving Nurses: Please use comment section below to note any information pertinent to the patient hand-off not included above. Information / Comments: Dx hepatitis, multiple tick bites from trail in [place], needed chest compressions in ER, ongoing fevers controlled w/ tylenol, being treated for lyme. Fluids running 75cc. Report received from: Anisha DOMÍNGUEZ
[2024-02-18 21:08] LABS: Anaplasma phagocytophilum Negative (Negative); B. miyamotoi PCR Negative (Negative); Babesia divergens/MO-1 Negative (Negative); Babesia duncani Negative (Negative); Babesia microti Negative (Negative); Ehrlichia chaffeensis Positive (Negative); Ehrlichia ewingii/canis Negative (Negative); Ehrlichia muris eauclairensis Negative (Negative)
[2024-02-18] MEDS: Normal Saline 1,000 ML 75 ML IV (23:03)
[2024-02-19 03:02] VITALS: BP 138/74; PULSE 82; RESP 18; TEMP 36.6; O2SAT 95
[2024-02-19 06:38] LABS: HCT 30.4 % (40.0-50.0); HGB 10.7 g/dL (13.5-17.5); MCH 30.9 pg (27.0-33.0); MCHC 35.2 % (32.0-36.0); MCV 88 fL (80-95); MPV 9.7 fL (8.0-11.0); Platelet Count 118 10^3/uL (130-400); RBC 3.46 10^6/uL (4.36-5.78); RDW 13.4 % (11.8-14.1); RDW-SD 43.6 fL
[2024-02-19 06:57] LABS: ALT 341 U/L (16-63); AST 309 U/L (15-37); Albumin 2.3 g/dL (3.4-5.0); Alkaline Phosphatase 276 U/L (46-116); Anion Gap 13.6 mmol/L (3-11); BUN 45 mg/dL (7-18); Bilirubin, Total 0.58 mg/dL (0.2-1.0); CO2 15.4 mmol/L (21.0-32.0); Calcium 8.1 mg/dL (8.5-10.1); Chloride 110 mmol/L (98-107); Estimated GFR 15.98 (mL/min/1.73m2); Glucose 112 mg/dL (74-106); Potassium 3.7 mmol/L (3.5-5.1); Sodium 139 mmol/L (136-145); Total Protein 5.7 g/dL (6.4-8.2)
[2024-02-19 07:01] LABS: CREATININE 4.2 mg/dL (0.70-1.30)
[2024-02-19 07:14] VITALS: BP 131/77; PULSE 73; RESP 18; TEMP 38.1; O2SAT 96
[2024-02-19] MEDS: Acetaminophen 325 MG TAB PO (07:48)
[2024-02-19] MEDS: Allopurinol 100 MG TAB PO (07:50)
[2024-02-19] MEDS: Aspirin E.C. 81 MG TABEC PO (07:50)
[2024-02-19] MEDS: Omeprazole 20 MG CAPCR PO (07:50)
[2024-02-19] MEDS: Clopidogrel 75 MG TAB PO (07:50)
[2024-02-19] MEDS: Calcitriol 0.25 MCG CAP PO (07:50)
[2024-02-19] MEDS: Normal Saline Flush 10 ML SYR IVP (08:30)
[2024-02-19 08:56] VITALS: TEMP 36.4
[2024-02-19] MEDS: cefTRIAXone 2 GM/50 ML BAG IVPB (10:32)
--- NOTE | 2024-02-19 11:05 | PDOC.CMDIS ---
Date of service: 02/19/24 Time of Service: 11:05 LACE Index Scoring Tool Questions: Length of Stay (in days): 3 Was the patient admitted via the E.D.?: Yes Comorbidities: Previous M.I. and Liver or Renal Disease E.D. Visits: 1 Answers: Total Score: 12 Risk of Readmission: High Risk Care Management Discharge Plan Reason for Hospitalization: tick borne illness Discharge Plan: Robert is discharged home with no services. He does have new orders for oral antibiotics, and for outpatient lab work 2 times a week for the next couple of weeks to continue to monitor his levels closely. Robert will f/u with his PCP, his community outreach manager and his converting supervisor. He will transport home in a private vehicle with his , and continue per his plan of care. Patient/Family Education Needs: Review of discharge instructions, activity, limitations, f/u plan, and discuss Ask me 3 SDOH Health Related Social Needs: No Data to Display
[2024-02-19 11:08] VITALS: BP 132/78; PULSE 61; RESP 18; TEMP 36.7; O2SAT 97
--- NOTE | 2024-02-19 11:25 | DSE_ITS ---
Date of service: 02/19/24 Time of Service: 09:05 DS: Diagnosis Discharge Diagnosis (1) Ehrlichiosis chafeensis: Status: Acute Asessment and Plan: Serologies just recently returned showing early Andria to be the cause of his acute febrile illness. Also knows HGE or human granulocytic early ketosis Doxycycline is a drug of choice. 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 His anaplasmosis serologies were negative. Patient will continue on doxycycline hyclate 100 mg p.o. twice daily times additional 30 days. Side effects of the doxycycline including nausea and ab dominal pain as well as photosensitivity are discussed in detail with the patient. (2) Tick-borne disease: Status: Acute Asessment and Plan: Recent serologies have returned positive for Ehrlichia chaffeensis Treatment is being changed from ceftriaxone and azithromycin to oral doxycycline. First dose of doxycycline is being given today prior to discharge. Doxycycline hyclate 100 mg tablets 1 p.o. twice daily #60 prescription is sent to patient's pharmacy of [facility] pharmacy Tick avoidance interventions are discussed with the patient and outlined in the HPI/summary (3) AASHISH (acute kidney injury): Status: Acute Asessment and Plan: Patient's renal function continues to improve. Creatinine is decreased from a high of 6.8 to now 4.2. Will repeat CMP twice weekly for the next 2 weeks, critical values to Dr. Jesús Kennedy (4) Thrombocytopenia: Status: Chronic Asessment and Plan: Platelet count has returned to normal range. Patient had no evidence of bleeding during his hospitalization. (5) Bradycardia: Status: Acute Asessment and Plan: Patient experienced bradycardia down to asystole in the emergency department. Since that time, we have not had any episodes of bradycardia. Patient to follow-up with his aquatic habitat biologist regarding the bradycardia and his coronary artery disease. We will hold the metoprolol at discharge and defer to cardiology for reinstitution of metoprolol or change to another beta-shahram in the face of the patient's bradycardia to asystole which was likely vagal induced but may have had beta-shahram contributed (6) Anxiety: Status: Chronic Asessment and Plan: We have been providing the patient with alprazolam as needed Patient was mildly short of breath last night. 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 Continue doxycycline for 1 month CMP will be repeated twice weekly for the next 10 days (8) Myalgia: Status: Acute Asessment and Plan: This has improved substantially CPK levels were normal and this did not contribute to the patient's acute kidney injury (9) Bilateral leg cramps: Status: Acute Asessment and Plan: This has improved substantially (10) Coronary artery disease: Status: Chronic Asessment and Plan: Stable. Patient to follow-up with his aquatic habitat biologist regarding the bradycardia and his coronary artery disease. We will hold the metoprolol at discharge and defer to cardiology for reinstitution of metoprolol or change to another beta-shahram in the face of the patient's bradycardia to asystole which was likely vagal induced but may have had beta-shahram contributed (11) GERD (gastroesophageal reflux disease): Status: Chronic Asessment and Plan: Stable at this time. Patient has omeprazole as an outpatient listed as needed. Protonix may be a better choice on a daily basis. Discussed with inpatient pharmacy regarding switch to Protonix. Will defer to patient's primary care (12) Foot deformity: Status: Chronic Asessment and Plan: Stable, noncontributory to this hospitalization (13) Hyperlipidemia: Status: Acute Asessment and Plan: Patient may resume his statin agent now that he is off the azithromycin. (14) Gout: Status: Chronic Asessment and Plan: No acute gouty flares during this hospitalization despite the patient's renal failure (15) Hypertension: Status: Chronic Asessment and Plan: Lisinopril was held due to the patient's acute renal failure. Lisinopril is now restarted. Patient is given a dose today and instructions to resume lisinopril as an outpatient (16) CKD (chronic kidney disease) stage 3, GFR 30-59 ml/min: Status: Acute Asessment and Plan: Will monitor renal function as an outpatient. Patient is suggested to follow-up with his marketing production manager regarding this episode. His renal insufficiency is likely due to dehydration secondary to his high fevers as an outpatient prior to presentation (17) History of AL (myocardial infarction): Status: Acute Asessment and Plan: Stable no issues during this hospitalization (18) HEART SURGERY: Asessment and Plan: Noncontributory to the hospitalization. Discharge Plan Disposition Condition: Stable Condition: Fair Discharge Details Reason For Visit: Hepatitis Admit Date/Time: 02/16/24 11:19 Admit Provider: Broderick Davis Attending Provider: Broderick Davis Primary Care Provider: Jesús Mednia Hospital Course Hospital Course: Patient was admitted through the emergency department with neutropenia and thrombocytopenia, acute on chronic renal failure as well as liver enzymes elevation fevers and chills. Patient experienced bradycardia down to asystole during the placement of IV in the emergency department. Patient's metoprolol has since been held and no further bradycardia has been noted. Blood work sent off for tickborne illness due to the patient's exposure in [facility] with literally 100s of insect bites approximately 3 weeks prior to the patient presenting to the emergency department. No known or recognized tick bites. No ECM rash identified. 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 Laboratory tests including serologies and PCR's remain pending at this time. Patient is entertained slow improvement. His creatinine peaked at 6.2 and now is down to 4.2. Platelet count vladimir was 66 and now is 118. White count has recovered to a normal range. Liver enzymes peaked in the high 300-500 range and are now declining. Alkaline phosphatase remains elevated but stable. Bilirubin has improved from admission of 1.16 and is now 0.58 Laboratories are now reported screening Lyme antibody is negative (WB not performed), babesiosis negative by PCR, Anaplasma serology negative. Ehrlichia chaffeensis is positive. Patient is educated about soaking his hunting clothes in 0.05% permethrin that helps protect against ticks for up to 90 days through repeated washings. Patient is cautioned to use DEET 40% or greater to help in tick avoidance. He is planning on returning to his hunting site in [facility] later this month. Results of blood tests are discussed with the patient and his . An opportunity ask questions was made. Many questions were offered, all answered. Case is discussed with his primary nurse. Home Meds and New Rx's Prescriptions: New doxycycline hyclate 100 mg tablet 100 mg PO BID Qty: 60 0RF Rx Instructions: tablets only please. one po bid following a meal. Thank you, Dr. Davis Continued colchicine 0.6 mg tablet 0.6 mg PO DAILY Qty: 90 1RF Rx Instructions: 0.6 mg daily for prophylaxis x 3 months. If gout flares, take 2 tabs immediately and one more tab in an hour nitroglycerin 0.4 mg tablet, sublingual 0.4 mg sublingual Q5M PRN Rx Instructions: do not exceed 3 doses per episode omeprazole 20 mg capsule,delayed release(DR/EC) 20 mg PO DAILY PRN (Reason: heartburn) Qty: 90 1RF aspirin 81 mg tablet,delayed release (DR/EC) 81 mg PO DAILY Qty: 90 4RF atorvastatin 80 mg tablet 80 mg PO QHS Qty: 90 4RF clopidogrel 75 mg tablet 75 mg PO DAILY Qty: 90 4RF calcitriol 0.25 mcg capsule 0.25 mcg PO DAILY Qty: 90 4RF lisinopril 20 mg tablet 20 mg PO DAILY Qty: 90 4RF allopurinol 100 mg tablet 100 mg PO DAILY Qty: 90 4RF Held metoprolol succinate 25 mg tablet extended release 24 hr 25 mg PO DAILY Qty: 90 4RF Hold Instructions: Please discuss with your aquatic habitat biologist this medication. Your heart rate slowed to a critical low level while in the emergency department and this medication may have contributed to that happening. Rx Instructions: take 12.5mg BID Discharge Instructions Referrals: Jesús Medina NP [Primary Care Provider] - 03/26/24 1:40 pm Activity:: Activity as Tolerated Equipment/Supplies:: No Equipment Needed Diet:: As Tolerated Discharge Orders Other Ambulatory Orders: Comprehensive Metabolic Panel (Routine) Timeframe: 20240223 Facility: [facility] - Location: Laboratory Outpatient - [facility] Ordered By: Broderick Davis Comprehensive Metabolic Panel (Routine) Timeframe: 20240220 Facility: [facility] - Location: Laboratory Outpatient - [facility] Ordered By: Broderick Davis Comprehensive Metabolic Panel (Routine) Timeframe: 20240226 Facility: [facility] - Location: Laboratory Outpatient - [facility] Ordered By: Broderick Davis Comprehensive Metabolic Panel (Routine) Timeframe: 20240226 Facility: [facility] - Location: Laboratory Outpatient - [facility] Ordered By: Broderick Davis DS: Summary Time Spent with Patient providing and/or coordinating discharge services: Greater than 30 minutes Status at Discharge Functional status at discharge: independent ambulation Overall status at discharge: patient is progressing back to baseline Mental Status: mental status grossly normal Speech and Movement: speech and movement normal Mood: congruent mood Affect: normal affect Quality:SDOH Health Related Social Needs: No Data to Display Quality: VTE Contraindication No VTE Prophylaxis: Treatment not indicated (low risk patient on dual antiplatelet therapy with current thrombocytopenia.) Exam Narrative Exam Narrative: Patient is alert and oriented x 3 and in no acute distress. Exam essentially unchanged HEENT: Neck supple, Conjunctiva non-injected, sclera non-icteric, Pupils equal and reactive to light symmetrically, CHEST: Bilaterally symmetrical with inspiration and expiration. No use of accessory muscles of respiration. No nasal flaring. LUNGS: Clear to auscultation bilaterally, no rales, rhonchi or wheeze, no pleural friction rub, no post-tussive crackles COR: RRR without murmur, normal S1, S2, no rub or ileana. Old, well healed midline sternotomy incision with no signs of disruption ABDOMEN: Soft, non tender diffusely, normally active bowel sounds diffusely, No hepatosplenomegaly, No abdominal bruit, no masses, no tenderness on deep abdominal palpation. G/U: deferred Rectal: deferred MUSCULOSKELETAL: Bilaterally symmetrical, no muscle belly tenderness or mass DERMIS: Skin warm and dry, no ulcers, Rash along R flank with continued regression with devolving small 1-2 mm papules with faint erythema and erythematous base. EXTREMITIES: No cyanosis, clubbing or edema, feet with bilateral bunions, patient sees podiatry. No hand or wrist abnormalities. Moves all extremities normally without difficulty. NEUROLOGICAL: Cranial nerves intact II-XII without notable deficit, No peripheral neurosensory or motor deficits noted. LYMPH: No anterior or posterior cervical, no supraclavicular, No axillary, no epitrochlear or femoral lymphadenopathy. Psych Mental Status: mental status grossly normal Speech and Movement: speech and movement normal Mood: congruent mood Affect: normal affect DS: Data Vitals/I&O Vitals and I&O: Vital Signs Temperature 36.7 C 02/19/24 11:08 Temperature Source Temporal Artery Scan 02/19/24 11:08 Pulse 61 02/19/24 11:08 Pulse 83 02/18/24 18:00 Respiratory Rate 18 02/19/24 11:08 Respiratory Effort Normal 02/16/24 13:49 Respiratory Depth Normal 02/16/24 13:49 Respiratory Pattern Normal 02/16/24 13:49 Blood Pressure 132/78 02/19/24 11:08 Blood Pressure Mean 92 02/18/24 16:02 Blood Pressure Position Supine 02/16/24 13:49 Pulse Oximetry 97 02/19/24 11:08 Oxygen Delivery Method Room Air 02/19/24 11:08 Oxygen Flow Rate 0 02/19/24 11:08 Fraction of Inspired Oxygen (FIO2) 96 02/16/24 20:01 Pain Level 0 02/19/24 03:02 Intake & Output 02/18/24 02/18/24 02/19/24 11:59 23:59 11:59 Intake Total 2618.333 / 4703.749 2085.416 / 4703.749 Output Total 1100 / 3050 1950 / 3050 900 / 900 Balance 1518.333 / 1653.749 135.416 / 1653.749 -900 / -900 Weight 98.3 kg Intake: IV 1958.333 / 3803.749 1845.416 / 3803.749 Oral 660 / 900 240 / 900 Output: Urine 1100 / 3050 1950 / 3050 900 / 900 Other: Urine Color Yellow Pale Pale Yellow Yellow Urine Appearance Clear Clear Clear Urine Odor Normal None None Comment Independent. Stool Size Moderate Small Stool Characteristics Liquid Formed Voiding Methods Urinal Urinal Toilet Data Completed and Pending Labs on day of discharge: Labs from last 24 hours 02/19/24 02/18/24 02/16/24 06:22 16:00 07:50 WBC 8.00 RBC 3.46 L Hgb 10.7 L Hct 30.4 L MCV 88 MCH 30.9 MCHC 35.2 RDW 13.4 Plt Count 118 L MPV 9.7 Sodium 139 137 Potassium 3.7 3.8 Chloride 110 H 109 H Carbon Dioxide 15.4 L 16.3 L Anion Gap 13.6 H 11.7 H BUN 45 H 56 H Creatinine 4.2 H* 5.0 H* Est GFR (CKD-EPI 2020) 15.98 12.96 Glucose 112 H 121 H Calcium 8.1 L 7.8 L Total Bilirubin 0.58 0.52 AST 309 H 400 H ALT 341 H 376 H Alkaline Phosphatase 276 H 278 H Total Protein 5.7 L 5.7 L Albumin 2.3 L 2.3 L B. divergens/MO-1 PCR Negative Babesia duncani (PCR) Negative Babesia microti DNA PCR Negative Lyme Disease Antibody Negative E.chaffeensis DNA (PCR) Positive A E.ewingii/canis DNA PCR Negative E.muris eauclairensis (PCR) Negative A. phagocytophilum (PCR) Negative Blood B. miyamotoi (PCR) Negative Preliminary micro results at discharge 02/16/24 08:38 Blood Culture - Preliminary Blood NO GROWTH 72 HOURS 02/16/24 08:50 Blood Culture - Preliminary Blood NO GROWTH 72 HOURS PFSH All Active Problems (Updated 02/19/24 @ 11:26 by Broderick Davis DO) Ehrlichiosis chafeensis (Acute) Tick-borne disease (Acute) AASHISH (acute kidney injury) (Acute) Thrombocytopenia (Chronic) Bradycardia (Acute) Anxiety (Chronic) Myalgia (Acute) Elevated liver enzymes (Acute) Bilateral leg cramps (Acute) Coronary artery disease (Chronic) GERD (gastroesophageal reflux disease) (Chronic) Foot deformity (Chronic) Very large bilateral bunions with associated hammertoes adjacent, seen by podiatry Hallux valgus (acquired), right foot (Acute) Hammertoe of right foot (Acute) Diastasis recti (Acute 05/01/16) Hyperlipidemia (Acute 05/01/16) Gout (Chronic) 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 ASD ?VSD-pt. states he is unsure ofwhich defect it was Family History Mother Essential hypertension Father Myocardial infarction Brother Heart disease Myocardial infarction Maternal Cousin Factor 5 Leiden mutation, heterozygous Maternal Aunt Factor 5 Leiden mutation, heterozygous Grandmother Diabetes Heart disease Family history Heart disease STRONG HX OF HEART DISEASE Social History Smoking/Tobacco Use Status: Former Tobacco Use tobacco type: cigarettes Quit Date: 05/19/98 Tobacco: How many years used: 10 Second Hand Exposure: Yes Smoking risk assessment performed?: Yes Alcohol Intake: current Alcohol Intake frequency: a few times a week Alcohol type: beer Drug use: Never Substance use type: does not use Caregiver/Support person: No Household members: spouse Housing: house Communication Needs: None Do you need help understanding health information?: Rarely Pets and animals: No Sexually active: Yes Do you think of yourself as: straight/heterosexual Current gender identity: male What is your relationship status?: How often do you talk on the phone with friends or family?: decline to answer How often do you get together with friends or relatives?: decline to answer How often do you attend uatsdin or tenriism services?: decline to answer Do you belong to any clubs or organized social groups?: decline to answer Panel score (0-1 are the most socially isolated patients): 1 Special yvette needs: No Seatbelt use: always Drive intox or ride w/intox driver helper: No Do you feel safe at home: Yes Do you feel safe in your relationship?: Yes Time Spent with Patient Time Spent with Patient: 70-84 minutes4 Time was spent: preparing to see the patient(eg.review tests), obtaining and/or reviewing separately otained hiistory, ordering medications,tests, procedures, referring, communicating with other health manager intensive care unit, indepentently interpreting results, counseling the patient (and . an opportunity to ask questions was made and all answered. ), care coordination and other (communication to Dr. Jesús Kennedy )
[2024-02-19] MEDS: Doxycycline Hyclate 100 MG CAP PO (11:52)
[2024-02-19] MEDS: Lisinopril 20 MG TAB PO (11:52)
== END 2024-02-19 12:55 | disposition home or self-care (01) | DRG 868 ==
LOC: ER 10:23 → ICU 13:28 → MS 02-18 19:23
PROVIDERS: Admitting Provider Internal Medicine; Emergency Provider Emergency Medicine; PCP Nurse Practitioner Family; Visit Provider Internal Medicine
DX: N17.9 Acute kidney failure, unspecified (principal); D69.6 Thrombocytopenia, unspecified; R00.1 Bradycardia, unspecified; R74.8 Abnormal levels of other serum enzymes; F41.9 Anxiety disorder, unspecified; M79.10 Myalgia, unspecified site; I25.10 Atherosclerotic heart disease of native coronary artery without angina pectoris; K21.9 Gastro-esophageal reflux disease without esophagitis; E78.5 Hyperlipidemia, unspecified; N18.30 Chronic kidney disease, stage 3 unspecified; I12.9 Hypertensive chronic kidney disease with stage 1 through stage 4 chronic kidney disease, or unspecified chronic kidney disease; I25.2 Old myocardial infarction; A77.41 Ehrlichiosis chaffeensis [E. chaffeensis]; E86.0 Dehydration; D69.59 Other secondary thrombocytopenia; G47.62 Sleep related leg cramps; Z95.5 Presence of coronary angioplasty implant and graft; I45.10 Unspecified right bundle-branch block; M20.42 Other hammer toe(s) (acquired), left foot; M20.41 Other hammer toe(s) (acquired), right foot; M21.612 Bunion of left foot; M21.611 Bunion of right foot; M1A.9XX0 Chronic gout, unspecified, without tophus (tophi); K75.89 Other specified inflammatory liver diseases
CPT/HCPCS: 00123; 36410; 36415; 71250; 80048; 80053; 80076; 82550; 84145; 85027; 87040; 87637; 87798; 92950; 93005; 96361; 96365; 99285; 74176; 81003; 81015; 83605; 83735; 84484; 84550; 85025; 86618; 93010; 99223; 99232; 99239; J0456; J0696

== ENCOUNTER 2024-02-23 09:05 | Outpatient (CLI) | payer BC, SELFPAY ==
[2024-02-23 10:22] LABS: ALT 183 U/L (16-63); AST 65 U/L (15-37); Albumin 3.3 g/dL (3.4-5.0); Alkaline Phosphatase 393 U/L (46-116); Anion Gap 15.9 mmol/L (3-11); BUN 33 mg/dL (7-18); Bilirubin, Total 0.56 mg/dL (0.2-1.0); CO2 19.1 mmol/L (21.0-32.0); CREATININE 2.7 mg/dL (0.70-1.30); Calcium 9.3 mg/dL (8.5-10.1); Chloride 115 mmol/L (98-107); Estimated GFR 27.16 (mL/min/1.73m2); Glucose 98 mg/dL (74-106); Potassium 4.5 mmol/L (3.5-5.1); Sodium 150 mmol/L (136-145); Total Protein 7.9 g/dL (6.4-8.2)
== END 2024-02-23 09:06 | disposition home or self-care (01) ==
LOC: LBO 09:06
PROVIDERS: PCP Nurse Practitioner Family; Visit Provider Internal Medicine
DX: R74.8 Abnormal levels of other serum enzymes (principal); N17.9 Acute kidney failure, unspecified; B88.2 Other arthropod infestations
CPT/HCPCS: 36415; 80053

== ENCOUNTER 2024-02-25 11:54 | Outpatient (REF) | payer BC, SELFPAY ==
[2024-02-25 10:10] LABS: C Diff PCR Negative (Negative)
== END 2024-02-25 11:55 | disposition home or self-care (01) ==
LOC: NCHCN 11:54
PROVIDERS: PCP Nurse Practitioner Family; Visit Provider Nurse Practitioner Family
DX: R19.7 Diarrhea, unspecified (principal)
CPT/HCPCS: 87493

== ENCOUNTER 2024-02-26 02:54 | Outpatient (CLI) | payer BC, SELFPAY ==
[2024-02-26 11:14] LABS: ALT 101 U/L (16-63); AST 32 U/L (15-37); Albumin 3.7 g/dL (3.4-5.0); Alkaline Phosphatase 284 U/L (46-116); Anion Gap 14.9 mmol/L (3-11); BUN 40 mg/dL (7-18); Bilirubin, Total 0.59 mg/dL (0.2-1.0); CO2 18.1 mmol/L (21.0-32.0); CREATININE 2.6 mg/dL (0.70-1.30); Calcium 9.4 mg/dL (8.5-10.1); Chloride 112 mmol/L (98-107); Estimated GFR 28.42 (mL/min/1.73m2); Glucose 129 mg/dL (74-106); Potassium 4.9 mmol/L (3.5-5.1); Sodium 145 mmol/L (136-145); Total Protein 8.3 g/dL (6.4-8.2)
== END 2024-02-26 02:55 | disposition home or self-care (01) ==
LOC: LBO 02:54
PROVIDERS: PCP Nurse Practitioner Family; Visit Provider Internal Medicine
DX: N17.9 Acute kidney failure, unspecified (principal); R74.8 Abnormal levels of other serum enzymes
CPT/HCPCS: 36415; 80053

== ENCOUNTER 2024-03-01 03:04 | Outpatient (CLI) | payer BC, SELFPAY ==
[2024-03-01 09:20] LABS: ALT 68 U/L (16-63); AST 35 U/L (15-37); Albumin 4.2 g/dL (3.4-5.0); Alkaline Phosphatase 210 U/L (46-116); Anion Gap 14.7 mmol/L (3-11); BUN 49 mg/dL (7-18); Bilirubin, Total 0.53 mg/dL (0.2-1.0); CO2 20.3 mmol/L (21.0-32.0); Calcium 9.9 mg/dL (8.5-10.1); Chloride 110 mmol/L (98-107); Estimated GFR 23.93 (mL/min/1.73m2); Glucose 115 mg/dL (74-106); Potassium 5.2 mmol/L (3.5-5.1); Sodium 145 mmol/L (136-145); Total Protein 8.7 g/dL (6.4-8.2)
== END 2024-03-01 03:05 | disposition home or self-care (01) ==
LOC: LBO 03:04
PROVIDERS: PCP Nurse Practitioner Family; Visit Provider Internal Medicine
DX: N17.9 Acute kidney failure, unspecified (principal); R74.8 Abnormal levels of other serum enzymes; B88.2 Other arthropod infestations
CPT/HCPCS: 36415; 80053

== ENCOUNTER 2024-03-04 02:56 | Outpatient (CLI) | payer BC, SELFPAY ==
[2024-03-04 09:20] LABS: ALT 78 U/L (16-63); AST 41 U/L (15-37); Alkaline Phosphatase 176 U/L (46-116); Anion Gap 13.9 mmol/L (3-11); BUN 55 mg/dL (7-18); Bilirubin, Total 0.51 mg/dL (0.2-1.0); CO2 19.1 mmol/L (21.0-32.0); CREATININE 2.9 mg/dL (0.70-1.30); Calcium 9.7 mg/dL (8.5-10.1); Chloride 110 mmol/L (98-107); Estimated GFR 24.93 (mL/min/1.73m2); Glucose 110 mg/dL (74-106); Potassium 5.4 mmol/L (3.5-5.1); Sodium 143 mmol/L (136-145); Total Protein 8.3 g/dL (6.4-8.2)
== END 2024-03-04 02:57 | disposition home or self-care (01) ==
LOC: LBO 02:56
PROVIDERS: Internal Medicine; PCP Nurse Practitioner Family; Visit Provider Nurse Practitioner Family
DX: R74.8 Abnormal levels of other serum enzymes (principal); N17.9 Acute kidney failure, unspecified; B88.2 Other arthropod infestations
CPT/HCPCS: 36415; 80053

== ENCOUNTER 2024-03-08 09:11 | Outpatient (CLI) | payer BC, SELFPAY ==
--- NOTE | 2024-03-08 09:00 | RT.EKG_ITS ---
APPROVED REPORT Exam: Resting ECG Reason for Exam: evaluate cardiac status Patient Location: O HR:77 bpm ECG Measurements Heart Rate 77 AXIS NE 188 P -20 QRSd 146 QRS -22 QT 367 T 36 QTc 416 Conclusion Sinus rhythm...normal P axis, V-rate 50- 99 Right bundle branch block...QRSd>120, terminal axis(90,270) Left ventricular hypertrophy...multiple voltage criteria
== END 2024-03-08 09:12 | disposition home or self-care (01) ==
LOC: DI.CARD 09:11
PROVIDERS: PCP Nurse Practitioner Family; Visit Provider Internal Medicine Cardiovascular Disease
DX: I25.10 Atherosclerotic heart disease of native coronary artery without angina pectoris (principal); I10 Essential (primary) hypertension
CPT/HCPCS: 93010

== ENCOUNTER 2024-07-21 03:32 | Outpatient (CLI) | payer BC, SELFPAY ==
[2024-07-21 08:29] LABS: ALT 67 U/L (16-63); AST 29 U/L (15-37); Albumin 4.2 g/dL (3.4-5.0); Alkaline Phosphatase 96 U/L (46-116); Anion Gap 8.4 mmol/L (3-11); BUN 39 mg/dL (7-18); Bilirubin, Total 0.42 mg/dL (0.2-1.0); CO2 28.6 mmol/L (21.0-32.0); CREATININE 2.3 mg/dL (0.70-1.30); Calcium 9.8 mg/dL (8.5-10.1); Calculated LDL 89 mg/dL (<100); Chloride 108 mmol/L (98-107); Cholesterol 169 mg/dL (<200); Estimated GFR 32.92 (mL/min/1.73m2); Glucose 109 mg/dL (74-106); HDL Cholesterol 56 mg/dL (>or=40); Potassium 4.7 mmol/L (3.5-5.1); Sodium 145 mmol/L (136-145); Total Protein 7.8 g/dL (6.4-8.2); Triglyceride 123 mg/dL (<150)
== END 2024-07-21 03:33 | disposition home or self-care (01) ==
LOC: LBO 03:32
PROVIDERS: PCP Nurse Practitioner Family; Visit Provider Nurse Practitioner Family
DX: R74.8 Abnormal levels of other serum enzymes (principal); I10 Essential (primary) hypertension; E78.5 Hyperlipidemia, unspecified
CPT/HCPCS: 36415; 80053; 80061